=== PATIENT | female | born 1950 | race Caucasian/White ===

== ENCOUNTER → 2016-04-19 | Outpatient (CLI) | payer OTHER ==
[~2016-04-19] MED LIST: ATOR10TA88 PO; CHOL100010 PO; ESCI10TA17 PO; HYDR-5688 PO; IBUP-1050 PO; LISI-789 PO; LORA-741 PO
--- NOTE | 2016-04-19 16:44 | MAMMOGRAPHY REPORT ---
BILATERAL DIGITAL SCREENING MAMMOGRAM TOMOSYNTHESIS WITH CAD: 04/19/2016 CLINICAL HISTORY: Routine screening. Patient has no complaints. TECHNIQUE: Breast tomosynthesis in addition to standard 2D mammography was performed. Current study was also evaluated with a Computer Aided Detection (CAD) system. COMPARISON: Comparison is made to exams dated: 04/12/2015 mammogram, 02/17/2014 mammogram, 02/16/2013 mammogram, 02/06/2011 mammogram, 02/10/2012 mammogram - [facility], and 01/26/2008 . BREAST COMPOSITION: There are scattered areas of fibroglandular density in both breasts. FINDINGS: No suspicious masses, calcifications, or areas of architectural distortion are noted in e ither breast. There has been no significant interval change compared to prior exams. Scattered bilat eral benign-appearing calcifications are not significantly changed. Nodular asymmetry seen within t he right subareolar breast on the MLO view appears similar to the 2010 exam, and is therefore benign and felt to represent normal fibroglandular tissue. IMPRESSION: ACR BI-RADS CATEGORY 2: BENIGN There is no mammographic evidence of malignancy. A 1 year screening mammogram is recommended. The p atient will receive written notification of the results. Approximately 10% of breast cancers are not detected with mammography. A negative mammographic repor t should not delay biopsy if a clinically suggestive mass is present. Akanksha Sal M.D. /:04/19/2016 15:28:27 Milk Processing Worker: Юлия BEVERLY(Yanely)(Lesvia), [facility] letter sent: Normal 1/2 BI-RADS Code: ACR BI-RADS Category 2: Benign
== END | disposition home or self-care (01) ==
LOC: C.MAMM 13:55
PROVIDERS: ATTEND Family Medicine
DX: Z12.31 Encounter for screening mammogram for malignant neoplasm of breast (principal)

== ENCOUNTER → 2017-04-21 | Outpatient (CLI) | payer OTHER ==
[~2017-04-21] MED LIST changes: +ATOR10TA82 PO; -ATOR10TA88 PO; -HYDR-5688 PO
--- NOTE | 2017-04-21 15:19 | MAMMOGRAPHY REPORT ---
BILATERAL DIGITAL SCREENING MAMMOGRAM TOMOSYNTHESIS WITH CAD: 04/21/2017 CLINICAL HISTORY: Routine screening. Patient has no complaints. TECHNIQUE: Breast tomosynthesis in addition to standard 2D mammography was performed. Current study was also evaluated with a Computer Aided Detection (CAD) system. COMPARISON: Comparison is made to exams dated: 04/19/2016 mammogram, 04/12/2015 mammogram, 02/17/2014 m ammogram, 02/16/2013 mammogram, 02/10/2012 mammogram, and 02/06/2011 mammogram - [facility]. BREAST COMPOSITION: There are scattered areas of fibroglandular density in both breasts. FINDINGS: The parenchymal pattern is unchanged. No developing mass, architectural distortion or clus ter of suspicious microcalcifications is seen in either breast. IMPRESSION: ACR BI-RADS CATEGORY 2: BENIGN There is no mammographic evidence of malignancy. A 1 year screening mammogram is recommended. The pa tient will receive written notification of the results. Approximately 10% of breast cancers are not detected with mammography. A negative mammographic report should not delay biopsy if a clinically suggestive mass is present. Xin Menard M.D. ay/:04/21/2017 11:42:29 Admissions Manager Rn: Юлия BEVERLY(Yanely)(M), [facility] letter sent: Normal 1/2 BI-RADS Code: ACR BI-RADS Category 2: Benign
== END | disposition home or self-care (01) ==
LOC: C.MAMM 10:49
PROVIDERS: ATTEND Family Medicine
DX: Z12.31 Encounter for screening mammogram for malignant neoplasm of breast (principal)

== ENCOUNTER 2018-05-15 13:15 | Inpatient (IN) ==
[2018-05-15] MEDS ORDERED: dilTIAZem HCl 5 MG/ML 5 ML VIAL IV STA (13:41)
--- NOTE | 2018-05-15 13:47 | Emergency Department Note ---
ED Visit Note I contributed to the care of this patient under the supervision of . . Resident Activity Tracking Resident Involvement: Resident Care Provided Care Provided: Adult ED
[2018-05-15] MEDS ORDERED: SODIUM CHLORIDE 0.9% 1000ML 500 ML IV ONE (13:56)
[2018-05-15 13:57] LABS: Basophils # (auto) 0.01 K/uL (0-0.2); Basophils % (auto) 0.2 %; Eosinophils # (auto) 0.08 K/uL (0-0.5); Eosinophils % (auto) 1.2 %; Hematocrit (blood only) 44.1 % (37-47); Hemoglobin 14.1 g/dL (12.0-16.0); Immature Granulocytes # (auto) 0.01 K/uL (0.00-0.02); Immature Granulocytes % (auto) 0.2 %; Lymphocytes # (auto) 2.93 K/uL (1.2-3.4); Lymphocytes % (auto) 44.9 %; Mean Corpuscular Volume 91.5 fL (80-100); Mean Platelet Volume 10.7 fL (7.4-10.4); Monocytes # (auto) 0.33 K/uL (0.11-0.59); Monocytes % (auto) 5.1 %; Neutrophils # (auto) 3.16 K/uL (1.4-6.5); Neutrophils % (auto) 48.4 %; Platelet Count 338 K/uL (130-400); RDW Coefficient of Variation 13.6 % (11.5-14.5); RDW Standard Deviation 45.2 fL (36.4-46.3); Red Blood Count 4.82 M/uL (4.2-5.4); White Blood Count 6.52 K/uL (4.8-10.8)
[2018-05-15] MEDS ORDERED: dilTIAZem HCl 125 MG in DEXTROSE 5% 100 ML IV SCH (14:00)
[2018-05-15 14:13] LABS: Albumin Level 4.1 gm/dl (3.4-5.0); BUN Creatinine Ratio 23.1 (10-20); Calcium 9.7 mg/dl (8.5-10.1); Creatinine Clr Calc Pharmacy 73.1 ml/min; Est GFR (African American) 77.2; Est GFR (Non-African American) 66.6; Magnesium 2.2 mg/dl (1.8-2.4); Potassium 3.9 mmol/L (3.5-5.1)
[2018-05-15] MEDS ORDERED: HEPARIN SOD 5,000 UNIT/0.5 ML VIAL ONE (14:15)
[2018-05-15] MEDS ORDERED: HEPARIN 25000 UNIT/500 ML D5W IV ONE (14:15)
[2018-05-15 14:23] LABS: Albumin Globulin Ratio 1.1 (0.9-2); Bilirubin,Total 0.3 mg/dl (0.2-1); Globulin 3.7 gm/dl (2.5-4.0); Total Protein 7.8 gm/dl (6.4-8.2)
[2018-05-15 14:30] LABS: Partial Thromboplastin Time 27.3 Seconds (21.0-31.0)
--- NOTE | 2018-05-15 15:12 | XRay Report ---
XR chest 1V portable HISTORY: 67 years-old Female New afib RVR acute cardiac arrhythmia with atypical chest pain COMPARISON: Chest radiograph 09/07/2012 TECHNIQUE: Portable AP view of the chest FINDINGS: Cardiomediastinal and hilar silhouettes are unchanged. Calcification of the thoracic aortic arch. Mil d right hemidiaphragmatic elevation. There is no pneumothorax, pleural effusion, focal airspace conso lidation or overt pulmonary edema. Degenerative changes are seen about the shoulders and spine. IMPRESSION: No acute process. The above report was generated using voice recognition software. It may contain grammatical, syntax o r spelling errors. Electronically signed by: Hemant Adame M.D. 05/15/2018 3:11 PM
--- NOTE | 2018-05-15 15:52 | History & Physical Report ---
Date of Service May 15, 2018 Assessment & Plan (1) Atrial fibrillation with RVR: Atrial Fibrillation RVR: New Onset TSH: normal CXR:No acute process. Check ECHO Monitor electrolytes Start on metoprolol 25mg Q6H Discontinue Cardizem ggt which was started in ED IV lopressor PRN Started on IV heparin for anticoagulation Cardiology consulted--Appreciate Input Trend Cardiac enzymes Replace electrolytes as needed Gentle IV fluids Hypertension: Stable Continue Lisinopril Dyslipidemia: Continue Lipitor anxiety and depression Continue Lexapro DVT Px: on Heparin ggt Code Status: Full Code Disposition: Expect to discharge home when stable History of Present Illness Chief Complaint: Palpitations Primary Care Provider: Carey Serrano MD Patient is a 67-year-old female with history of hypertension, dyslipidemia, arthritis, anxiety and depression presents with history of palpitations since 6 months duration. Patient states having palpitations intermittently since 6 months duration which have been progressively worsening lately. Reports associated shortness of breath. States her symptoms worsen with exertion and improve with rest. Also reports associated dizziness but denies any history of syncope. Patient was noted to be in A. fib RVR with heart rate in 150s when in ED. She was started on heparin and Cardizem drip while in ED. Denies any history of chest pain, pedal edema, fever, chills, nausea, vomiting, abdominal pain, diarrhea, dysuria, hematuria, recent change in medications, any bleeding issues. Discussed with cardiology, Dr. Hopson while in ED. Allergies Allergy/AdvReac Type Severity Reaction Status Date / Time morphine Allergy Unknown Verified 05/15/18 13:50 Home Medications Home Medications Medication Instructions Recorded Confirmed Type atorvastatin 10 mg PO HS 05/15/18 05/15/18 History cholecalciferol (vitamin D3) 1,000 unit PO DAILY 05/15/18 05/15/18 History escitalopram oxalate 20 mg PO DAILY 05/15/18 05/15/18 History ibuprofen 200 - 600 mg PO Q4H PRN 05/15/18 05/15/18 History lisinopril 5 mg PO DAILY 05/15/18 05/15/18 History lorazepam 0.5 mg PO DAILY PRN 05/15/18 05/15/18 History Past Med/Surg History Medical History Anxiety H/O: hysterectomy Hyperlipidemia Hypertension Surgical History H/O knee surgery History of hip surgery Family History Other Family history non-contributory Social History Feels Safe at Home: Yes Smoking Status: Never smoker Hx Alcohol Use: No Review of Systems All systems reviewed & are unremarkable except as noted in HPI & below Physical Exam Vital Signs (Past 24 Hours): Last Vital Signs Temp 36.8 C 05/15/18 13:17 Pulse 98 H 05/15/18 15:01 Resp 17 05/15/18 15:01 BP 118/84 05/15/18 15:01 Pulse Ox 96 05/15/18 13:56 Physical Exam: Physical Exam: Vitals signs as noted above General Appearance:Moderately built and nourished, no apparent distress Head: normocephalic, Atraumatic Eyes: normal inspection, EOMI Neck: supple, Trachea midline Respiratory/Chest: Normal breath sounds, CTA, No accessory muscle use Cardiovascular: Irregularly Irregular, No murmur, +Tachycardia Abdomen/GI:Soft, Non tender, Bowel sounds present Extremities/Musculoskelatal:normal inspection, no edema Neurologic/Psych:AAOX3, grossly no focal neurological deficits Skin: normal color, warm Results & Data Laboratory Results Short CBC 05/15/18 Range/Units 13:45 WBC 6.52 (4.8-10.8) K/uL Hgb 14.1 (12.0-16.0) g/dL Hct 44.1 (37-47) % Plt Count 338 (130-400) K/uL BMP 05/15/18 13:45 Sodium 139 Potassium 3.9 Chloride 104 Carbon Dioxide 27 BUN 21 H Creatinine 0.90 Glucose 105 H Calcium 9.7 Liver Function 05/15/18 Range/Units 13:45 Total Bilirubin 0.3 (0.2-1) mg/dl AST 20 (15-37) U/L ALT 31 (12-78) U/L Alkaline Phosphatase 76 (45-117) U/L Albumin 4.1 (3.4-5.0) gm/dl Diagnostic Findings CXR: No acute process. ECG Additional Comments: EKG: Afib RVR, Low voltage QRS, Poor R wave progression on my interpretation
[2018-05-15] MEDS ORDERED: POLYETHYLENE (MIRALAX) 17 GM PACK PO PRN (17:37)
[2018-05-15] MEDS ORDERED: LORazepam 0.5 MG TAB PO PRN (17:37)
[2018-05-15] MEDS ORDERED: METOPROLOL TARTRATE 1 MG/ML VIAL IV PRN (17:37)
[2018-05-15] MEDS ORDERED: ACETAMINOPHEN 325 MG TAB PO PRN (17:37)
[2018-05-15] MEDS ORDERED: ONDANSETRON INJ 2 MG/ML 2 ML VIAL IV PRN (17:37)
[2018-05-15] MEDS ORDERED: NSS + 20MEQ KCL 20 MEQ/1,000 ML BAG IV ONE (17:45)
[2018-05-15] MEDS ORDERED: Heparin IV Standard *NO* Bolus IV SCH (17:45)
[2018-05-15] MEDS: METOPROLOL TARTRATE 25 MG TAB PO SCH ×2 (18:00→23:43)
[2018-05-15] MEDS: dilTIAZem HCl 125 MG in DEXTROSE 5% 100 ML IV SCH (18:02)
--- NOTE | 2018-05-15 18:48 | Emergency Department Note ---
Entered by Robel Kingston acting as a scribe for History of Present Illness General Chief complaint: Cardiac Assessment Stated complaint: A FIB - SENT FROM [facility] Time Seen by Provider: 05/15/18 13:23 Source: patient History of Present Illness Provider complaint: Palpitations Onset (ago): week(s) 1 Location: chest Radiation: non-radiation Severity: similar to prior episodes Pain Consistency: + intermittent Associated symptoms: + shortness of breath and + other (No changes in vision, shaky ); no chest pain, no nausea/vomiting, no syncope and no weakness The patient is a 67 year old female who presents to the Emergency Room with complaints of intermittent episodes of palpitations that have been persistent for the past couple of months but worse over the past week. She states last October is when she first developed palpitations. She states she has no chest pain or pressure but has been short of breath with exertion. She is unsure how long the episodes last but did note an episode the other night lasted all evening. She denies any weakness, nausea, vomiting, changes in vision or history of blood clots, but she has been intermittently lightheaded during her episodes. She also noted that she had a stress test last year after an abnormal EKG which revealed thickening of her heart, but no further tests were scheduled. She currently takes atorvastatin, lexapro, lisinopril and occasionally ativan. Home Medications Home Medications Medication Instructions Recorded Confirmed Type atorvastatin 10 mg PO HS 05/15/18 05/15/18 History cholecalciferol (vitamin D3) 1,000 unit PO DAILY 05/15/18 05/15/18 History escitalopram oxalate 20 mg PO DAILY 05/15/18 05/15/18 History ibuprofen 200 - 600 mg PO Q4H PRN 05/15/18 05/15/18 History lisinopril 5 mg PO DAILY 05/15/18 05/15/18 History lorazepam 0.5 mg PO DAILY PRN 05/15/18 05/15/18 History Allergies Allergy/AdvReac Type Severity Reaction Status Date / Time morphine Allergy Unknown Verified 05/15/18 13:50 Past Med/Surg History Medical History Anxiety H/O: hysterectomy Hyperlipidemia Hypertension Surgical History H/O knee surgery History of hip surgery Family History Other Family history non-contributory Social History Preferred Language: Greek Communication Ability: Effective Msws Required: No Beliefs That Will Affect Care: None Current Living Situation: Alone Other Information That Helps Us Care for You: No Feels Safe at Home: Yes Safety Concerns: Feels Safe At This Time Smoking Status: Never smoker Hx Alcohol Use: No Hx Substance Use: No Review of Systems See HPI for pertinent positives & negatives. and A total of 10 systems reviewed and were otherwise negative Physical Exam Vital Signs Vital Signs - 24 hr 05/15/18 13:17 05/15/18 13:34 05/15/18 13:40 Temperature 36.8 C Temperature Source Oral Sepsis Recent Fever Within 48 Hours No Sepsis New/Unexplained Change in Mental Status No Sepsis Action Taken by Nursing No Action Required Pulse Rate 153 H 146 H 158 H Pulse Rate [Apical] Pulse Rate from SpO2 Sensor Pulse Rhythm Irregular Pulse Rhythm [Apical] Pulse Strength Normal Pulse Strength [Apical] Respiratory Rate 20 21 17 Respiratory Effort / Characteristics Non-Labored Spontaneous Respiratory Depth Normal Respiratory Pattern Regular Blood Pressure 107/64 115/70 Blood Pressure [Right Arm] Blood Pressure Mean 78 85 Blood Pressure Mean [Right Arm] Blood Pressure Position [Right Arm] Pulse Oximetry 95 Pulse Oximetry [Right Index Finger] Oxygen Delivery Method Room Air Oxygen Delivery Method [Right Index Finger] 05/15/18 13:41 05/15/18 13:49 05/15/18 13:50 Temperature Temperature Source Sepsis Recent Fever Within 48 Hours Sepsis New/Unexplained Change in Mental Status Sepsis Action Taken by Nursing Pulse Rate 150 H 147 H 133 H Pulse Rate [Apical] Pulse Rate from SpO2 Sensor Pulse Rhythm Pulse Rhythm [Apical] Pulse Strength Pulse Strength [Apical] Respiratory Rate 17 20 Respiratory Effort / Characteristics Respiratory Depth Respiratory Pattern Blood Pressure 112/95 Blood Pressure [Right Arm] Blood Pressure Mean 100 Blood Pressure Mean [Right Arm] Blood Pressure Position [Right Arm] Pulse Oximetry Pulse Oximetry [Right Index Finger] Oxygen Delivery Method Oxygen Delivery Method [Right Index Finger] 05/15/18 13:53 05/15/18 13:55 05/15/18 13:56 Temperature Temperature Source Sepsis Recent Fever Within 48 Hours Sepsis New/Unexplained Change in Mental Status Sepsis Action Taken by Nursing Pulse Rate 126 H 132 H Pulse Rate [Apical] 120 H Pulse Rate from SpO2 Sensor 115 H 110 H Pulse Rhythm Pulse Rhythm [Apical] Pulse Strength Pulse Strength [Apical] Respiratory Rate 22 17 19 Respiratory Effort / Characteristics Respiratory Depth Respiratory Pattern Blood Pressure 120/76 Blood Pressure [Right Arm] 112/95 Blood Pressure Mean 113 90 Blood Pressure Mean [Right Arm] 100 Blood Pressure Position [Right Arm] Pulse Oximetry 96 96 Pulse Oximetry [Right Index Finger] Oxygen Delivery Method Oxygen Delivery Method [Right Index Finger] 05/15/18 14:00 05/15/18 14:05 05/15/18 14:10 Temperature Temperature Source Sepsis Recent Fever Within 48 Hours Sepsis New/Unexplained Change in Mental Status Sepsis Action Taken by Nursing Pulse Rate 108 H 103 H 104 H Pulse Rate [Apical] Pulse Rate from SpO2 Sensor Pulse Rhythm Pulse Rhythm [Apical] Pulse Strength Pulse Strength [Apical] Respiratory Rate 16 18 22 Respiratory Effort / Characteristics Respiratory Depth Respiratory Pattern Blood Pressure 141/105 H Blood Pressure [Right Arm] Blood Pressure Mean 117 Blood Pressure Mean [Right Arm] Blood Pressure Position [Right Arm] Pulse Oximetry Pulse Oximetry [Right Index Finger] Oxygen Delivery Method Oxygen Delivery Method [Right Index Finger] 05/15/18 14:16 05/15/18 14:20 05/15/18 14:30 Temperature Temperature Source Sepsis Recent Fever Within 48 Hours Sepsis New/Unexplained Change in Mental Status Sepsis Action Taken by Nursing Pulse Rate 112 H 114 H 110 H Pulse Rate [Apical] Pulse Rate from SpO2 Sensor Pulse Rhythm Pulse Rhythm [Apical] Pulse Strength Pulse Strength [Apical] Respiratory Rate 23 21 22 Respiratory Effort / Characteristics Respiratory Depth Respiratory Pattern Blood Pressure 122/81 Blood Pressure [Right Arm] Blood Pressure Mean 94 Blood Pressure Mean [Right Arm] Blood Pressure Position [Right Arm] Pulse Oximetry Pulse Oximetry [Right Index Finger] Oxygen Delivery Method Oxygen Delivery Method [Right Index Finger] 05/15/18 14:31 05/15/18 14:32 05/15/18 14:45 Temperature Temperature Source Sepsis Recent Fever Within 48 Hours Sepsis New/Unexplained Change in Mental Status Sepsis Action Taken by Nursing Pulse Rate 100 H 95 H 94 H Pulse Rate [Apical] Pulse Rate from SpO2 Sensor Pulse Rhythm Pulse Rhythm [Apical] Pulse Strength Pulse Strength [Apical] Respiratory Rate 24 18 21 Respiratory Effort / Characteristics Respiratory Depth Respiratory Pattern Blood Pressure 105/80 Blood Pressure [Right Arm] Blood Pressure Mean 88 Blood Pressure Mean [Right Arm] Blood Pressure Position [Right Arm] Pulse Oximetry Pulse Oximetry [Right Index Finger] Oxygen Delivery Method Oxygen Delivery Method [Right Index Finger] 05/15/18 14:46 05/15/18 15:00 05/15/18 15:01 Temperature Temperature Source Sepsis Recent Fever Within 48 Hours Sepsis New/Unexplained Change in Mental Status Sepsis Action Taken by Nursing Pulse Rate 101 H 94 H 98 H Pulse Rate [Apical] Pulse Rate from SpO2 Sensor Pulse Rhythm Pulse Rhythm [Apical] Pulse Strength Pulse Strength [Apical] Respiratory Rate 20 16 17 Respiratory Effort / Characteristics Respiratory Depth Respiratory Pattern Blood Pressure 118/84 Blood Pressure [Right Arm] Blood Pressure Mean 106 95 Blood Pressure Mean [Right Arm] Blood Pressure Position [Right Arm] Pulse Oximetry Pulse Oximetry [Right Index Finger] Oxygen Delivery Method Oxygen Delivery Method [Right Index Finger] 05/15/18 15:02 05/15/18 15:15 05/15/18 15:16 Temperature Temperature Source Sepsis Recent Fever Within 48 Hours Sepsis New/Unexplained Change in Mental Status Sepsis Action Taken by Nursing Pulse Rate 85 93 H 96 H Pulse Rate [Apical] Pulse Rate from SpO2 Sensor Pulse Rhythm Pulse Rhythm [Apical] Pulse Strength Pulse Strength [Apical] Respiratory Rate 16 26 H 21 Respiratory Effort / Characteristics Respiratory Depth Respiratory Pattern Blood Pressure 118/76 Blood Pressure [Right Arm] Blood Pressure Mean 90 Blood Pressure Mean [Right Arm] Blood Pressure Position [Right Arm] Pulse Oximetry Pulse Oximetry [Right Index Finger] Oxygen Delivery Method Oxygen Delivery Method [Right Index Finger] 05/15/18 15:30 05/15/18 15:31 05/15/18 15:35 Temperature Temperature Source Sepsis Recent Fever Within 48 Hours Sepsis New/Unexplained Change in Mental Status Sepsis Action Taken by Nursing Pulse Rate 90 91 H 102 H Pulse Rate [Apical] Pulse Rate from SpO2 Sensor Pulse Rhythm Pulse Rhythm [Apical] Pulse Strength Pulse Strength [Apical] Respiratory Rate 15 18 23 Respiratory Effort / Characteristics Respiratory Depth Respiratory Pattern Blood Pressure 116/79 119/74 Blood Pressure [Right Arm] Blood Pressure Mean 91 89 Blood Pressure Mean [Right Arm] Blood Pressure Position [Right Arm] Pulse Oximetry Pulse Oximetry [Right Index Finger] Oxygen Delivery Method Oxygen Delivery Method [Right Index Finger] 05/15/18 15:45 05/15/18 15:46 05/15/18 15:59 Temperature Temperature Source Sepsis Recent Fever Within 48 Hours Sepsis New/Unexplained Change in Mental Status Sepsis Action Taken by Nursing Pulse Rate 92 H 90 103 H Pulse Rate [Apical] Pulse Rate from SpO2 Sensor Pulse Rhythm Pulse Rhythm [Apical] Pulse Strength Pulse Strength [Apical] Respiratory Rate 15 20 17 Respiratory Effort / Characteristics Respiratory Depth Respiratory Pattern Blood Pressure 99/80 L 118/71 Blood Pressure [Right Arm] Blood Pressure Mean 86 86 Blood Pressure Mean [Right Arm] Blood Pressure Position [Right Arm] Pulse Oximetry Pulse Oximetry [Right Index Finger] Oxygen Delivery Method Oxygen Delivery Method [Right Index Finger] 05/15/18 16:00 05/15/18 16:01 05/15/18 16:15 Temperature Temperature Source Sepsis Recent Fever Within 48 Hours Sepsis New/Unexplained Change in Mental Status Sepsis Action Taken by Nursing Pulse Rate 88 92 H 103 H Pulse Rate [Apical] Pulse Rate from SpO2 Sensor Pulse Rhythm Pulse Rhythm [Apical] Pulse Strength Pulse Strength [Apical] Respiratory Rate 21 20 18 Respiratory Effort / Characteristics Respiratory Depth Respiratory Pattern Blood Pressure 117/70 Blood Pressure [Right Arm] Blood Pressure Mean 85 Blood Pressure Mean [Right Arm] Blood Pressure Position [Right Arm] Pulse Oximetry Pulse Oximetry [Right Index Finger] Oxygen Delivery Method Oxygen Delivery Method [Right Index Finger] 05/15/18 16:31 05/15/18 16:45 05/15/18 16:46 Temperature Temperature Source Sepsis Recent Fever Within 48 Hours Sepsis New/Unexplained Change in Mental Status Sepsis Action Taken by Nursing Pulse Rate 90 79 77 Pulse Rate [Apical] Pulse Rate from SpO2 Sensor Pulse Rhythm Pulse Rhythm [Apical] Pulse Strength Pulse Strength [Apical] Respiratory Rate 21 13 23 Respiratory Effort / Characteristics Respiratory Depth Respiratory Pattern Blood Pressure 107/79 119/81 Blood Pressure [Right Arm] Blood Pressure Mean 88 93 Blood Pressure Mean [Right Arm] Blood Pressure Position [Right Arm] Pulse Oximetry Pulse Oximetry [Right Index Finger] Oxygen Delivery Method Oxygen Delivery Method [Right Index Finger] 05/15/18 17:00 05/15/18 17:01 05/15/18 17:23 Temperature Temperature Source Sepsis Recent Fever Within 48 Hours Sepsis New/Unexplained Change in Mental Status Sepsis Action Taken by Nursing Pulse Rate 87 92 H 128 H Pulse Rate [Apical] Pulse Rate from SpO2 Sensor Pulse Rhythm Pulse Rhythm [Apical] Pulse Strength Pulse Strength [Apical] Respiratory Rate 12 Respiratory Effort / Characteristics Respiratory Depth Respiratory Pattern Blood Pressure 119/76 Blood Pressure [Right Arm] Blood Pressure Mean 90 Blood Pressure Mean [Right Arm] Blood Pressure Position [Right Arm] Pulse Oximetry Pulse Oximetry [Right Index Finger] Oxygen Delivery Method Oxygen Delivery Method [Right Index Finger] 05/15/18 17:30 05/15/18 17:37 05/15/18 17:53 Temperature 36.9 C 36.9 C Temperature Source Oral Oral Sepsis Recent Fever Within 48 Hours Sepsis New/Unexplained Change in Mental Status Sepsis Action Taken by Nursing Pulse Rate 80 Pulse Rate [Apical] 82 82 Pulse Rate from SpO2 Sensor Pulse Rhythm Pulse Rhythm [Apical] Regular Regular Pulse Strength Pulse Strength [Apical] Normal Normal Respiratory Rate 20 14 19 Respiratory Effort / Characteristics Non-Labored Spontaneous Non-Labored Spontaneous Normal for Patient Respiratory Depth Normal Normal Respiratory Pattern Regular Blood Pressure 117/79 Blood Pressure [Right Arm] 133/69 133/69 Blood Pressure Mean Blood Pressure Mean [Right Arm] 90 90 Blood Pressure Position [Right Arm] Sitting Lying Pulse Oximetry 99 95 96 Pulse Oximetry [Right Index Finger] 95 Oxygen Delivery Method Room Air Room Air Room Air Oxygen Delivery Method [Right Index Finger] Room Air 05/15/18 18:09 Temperature Temperature Source Sepsis Recent Fever Within 48 Hours Sepsis New/Unexplained Change in Mental Status Sepsis Action Taken by Nursing Pulse Rate 95 H Pulse Rate [Apical] Pulse Rate from SpO2 Sensor Pulse Rhythm Pulse Rhythm [Apical] Pulse Strength Pulse Strength [Apical] Respiratory Rate Respiratory Effort / Characteristics Respiratory Depth Respiratory Pattern Blood Pressure Blood Pressure [Right Arm] Blood Pressure Mean Blood Pressure Mean [Right Arm] Blood Pressure Position [Right Arm] Pulse Oximetry Pulse Oximetry [Right Index Finger] Oxygen Delivery Method Oxygen Delivery Method [Right Index Finger] Constitutional: Vital signs reviewed. Eyes: Pupils are equal round reactive to light. Conjunctiva are noninjected. ENT: Pharynx is clear without erythema or exudate. Mucous membranes are moist. Neck supple without meningeal signs. Respiratory: Clear to auscultation bilaterally. Breath sounds are equal bilaterally. Cardiovascular: Tachycardic rate at 150 and regular rhythm. GI: Soft, nondistended and nontender. Bowel sounds are present. Musculoskeletal: No peripheral edema. No lower extremity tenderness. Integumentary: No cyanosis. Neurological: The patient is awake and alert. No focal deficits. Psychiatric: Normal affect. Course 1325: Past medical records reviewed. The patient was evaluated in room C01B, and a complete history and physical examination were performed. 1350: The patient's heart rate is in the one teens after Cardizem and her blood pressure is stable at 120/76. We discussed a Heparin drip and will start a Cardizem drip. 1453: I reevaluated the patient and her heart rate is between 90-100. The Cardizem and Heparin drips are running. 1530: My resident, Dr. Kumar, spoke with Dr. Gaetano Mantilla Hospitalist about the patient's case and he is going to accept the patient for further evaluation. Consultations Consultation #1: My resident, Dr. Kumar, spoke with [facility] about the patient's case and he is going to accept the patient for further evaluation. Time: 15:30 Administered Medications Diltiazem HCl 125 mg/ Dextrose 125 mls @ 10 mls/hr IV .[id number] [facility]; Protocol Stop: 06/14/18 17:44 Last Admin: 05/15/18 18:02 Dose: Not Given Documented by: [id number] Potassium Chloride/Sodium Chloride (Normal Saline W/20 Meq Kcl) 20 meq in 1,000 mls @ 80 mls/hr IV .[id number] ONE Stop: 05/16/18 06:14 Last Admin: 05/15/18 18:02 Dose: 80 mls/hr Documented by: [id number] Metoprolol Tartrate (Lopressor) 25 mg PO Q6 MIKE Stop: 06/14/18 17:59 Last Admin: 05/15/18 18:00 Dose: 25 mg Documented by: [id number] Discontinued Medications Diltiazem HCl (Cardizem) 10 mg IV NOW STA Stop: 05/15/18 13:42 Last Admin: 05/15/18 13:48 Dose: 10 mg Documented by: [id number] Cosigned by: [id number] Heparin Sodium (Porcine) (Heparin Sodium (Porcine)) Confirm Administered Dose 10,000 units .ROUTE .STK-MED ONE Stop: 05/15/18 14:16 Last Admin: 05/15/18 14:33 Dose: 6,000 units Documented by: [id number] Cosigned by: [id number] Heparin Sodium/Dextrose () 1 ea N/A NOW STA; Protocol Stop: 05/15/18 13:49 Last Admin: 05/15/18 14:35 Dose: 1 ea Documented by: [id number] Heparin Sodium/Dextrose (Heparin Sodium/Dextrose) Confirm Administered Dose 25,000 units IV .STK-MED ONE Stop: 05/15/18 14:16 Last Admin: 05/15/18 14:33 Dose: 27 units Documented by: [id number] Cosigned by: [id number] Sodium Chloride (Nss 1000ml) 500 mls @ 999 mls/hr IV .Q31M ONE Stop: 05/15/18 14:26 Last Infusion: 05/15/18 14:36 Dose: 0 mls/hr Documented by: [id number] Admin: 05/15/18 14:07 Dose: 999 mls/hr Documented by: [id number] Diltiazem HCl 125 mg/ Dextrose 125 mls @ 0 mls/hr IV .Q0M [facility]; Protocol Stop: 06/14/18 13:59 Last Titration: 05/15/18 18:08 Dose: 0 mg/hr, 0 mls/hr Documented by: [id number] Admin: 05/15/18 14:19 Dose: 10 mg/hr, 10 mls/hr Documented by: [id number] Cosigned by: [id number] Medical Decision Making Differential Diagnosis Differentials: Paroxysmal Afib, Afib with RVR, metabolic derangement, electrolyte abnormalities, and ACS, amongst others. Medical Records Attestation: I reviewed the patient's medical records. Home Medications Current Medication List: was personally reviewed by me Laboratory Data Attestation: I reviewed the patient's lab results. Result diagrams: 05/15/18 13:45 05/15/18 13:45 Lab Results 05/15/18 05/15/18 05/15/18 Range/Units 13:45 13:45 13:45 WBC 6.52 (4.8-10.8) K/uL RBC 4.82 (4.2-5.4) M/uL Hgb 14.1 (12.0-16.0) g/dL Hct 44.1 (37-47) % MCV 91.5 (80-100) fL MCH 29.3 (25-34) pg MCHC 32.0 (32-36) g/dL RDW Std Deviation 45.2 (36.4-46.3) fL RDW Coeff of Melly 13.6 (11.5-14.5) % Plt Count 338 (130-400) K/uL MPV 10.7 H (7.4-10.4) fL Immature Gran % (Auto) 0.2 % Neut % (Auto) 48.4 % Lymph % (Auto) 44.9 % Dade % (Auto) 5.1 % Eos % (Auto) 1.2 % Baso % (Auto) 0.2 % Immature Gran # (Auto) 0.01 (0.00-0.02) K/uL Neut # (Auto) 3.16 (1.4-6.5) K/uL Lymph # (Auto) 2.93 (1.2-3.4) K/uL Dade # (Auto) 0.33 (0.11-0.59) K/uL Eos # (Auto) 0.08 (0-0.5) K/uL Baso # (Auto) 0.01 (0-0.2) K/uL APTT 27.3 (21.0-31.0) Seconds PTT Ratio 1.0 Sodium 139 (136-145) mmol/L Potassium 3.9 (3.5-5.1) mmol/L Chloride 104 (98-107) mmol/L Carbon Dioxide 27 (21-32) mmol/L Anion Gap 8.0 (3-11) BUN 21 H (7-18) mg/dl Creatinine 0.90 (0.6-1.2) mg/dl Est Cr Clr Drug Dosing 73.1 ml/min Est GFR ( Amer) 77.2 Est GFR (Non-Af Amer) 66.6 BUN/Creatinine Ratio 23.1 H (10-20) Glucose 105 H (70-99) mg/dl Calcium 9.7 (8.5-10.1) mg/dl Magnesium 2.2 (1.8-2.4) mg/dl Total Bilirubin 0.3 (0.2-1) mg/dl AST 20 (15-37) U/L ALT 31 (12-78) U/L Alkaline Phosphatase 76 (45-117) U/L POC Troponin I (0-0.045) ng/ml Total Protein 7.8 (6.4-8.2) gm/dl Albumin 4.1 (3.4-5.0) gm/dl Globulin 3.7 (2.5-4.0) gm/dl Albumin/Globulin Ratio 1.1 (0.9-2) TSH 2.200 (0.300-4.500) uIu/ml 05/15/18 Range/Units 14:03 WBC (4.8-10.8) K/uL RBC (4.2-5.4) M/uL Hgb (12.0-16.0) g/dL Hct (37-47) % MCV (80-100) fL MCH (25-34) pg MCHC (32-36) g/dL RDW Std Deviation (36.4-46.3) fL RDW Coeff of Melly (11.5-14.5) % Plt Count (130-400) K/uL MPV (7.4-10.4) fL Immature Gran % (Auto) % Neut % (Auto) % Lymph % (Auto) % Dade % (Auto) % Eos % (Auto) % Baso % (Auto) % Immature Gran # (Auto) (0.00-0.02) K/uL Neut # (Auto) (1.4-6.5) K/uL Lymph # (Auto) (1.2-3.4) K/uL Dade # (Auto) (0.11-0.59) K/uL Eos # (Auto) (0-0.5) K/uL Baso # (Auto) (0-0.2) K/uL APTT (21.0-31.0) Seconds PTT Ratio Sodium (136-145) mmol/L Potassium (3.5-5.1) mmol/L Chloride (98-107) mmol/L Carbon Dioxide (21-32) mmol/L Anion Gap (3-11) BUN (7-18) mg/dl Creatinine (0.6-1.2) mg/dl Est Cr Clr Drug Dosing ml/min Est GFR ( Amer) Est GFR (Non-Af Amer) BUN/Creatinine Ratio (10-20) Glucose (70-99) mg/dl Calcium (8.5-10.1) mg/dl Magnesium (1.8-2.4) mg/dl Total Bilirubin (0.2-1) mg/dl AST (15-37) U/L ALT (12-78) U/L Alkaline Phosphatase (45-117) U/L POC Troponin I < 0.03 (0-0.045) ng/ml Total Protein (6.4-8.2) gm/dl Albumin (3.4-5.0) gm/dl Globulin (2.5-4.0) gm/dl Albumin/Globulin Ratio (0.9-2) TSH (0.300-4.500) uIu/ml Imaging Data Radiologist's Impression: Radiology results as stated below per my review and the radiologist's interpretation: XR chest 1V portable HISTORY: 67 years-old Female New afib RVR acute cardiac arrhythmia with aty pical chest pain COMPARISON: Chest radiograph 09/07/2012 TECHNIQUE: Portable AP view of the chest FINDINGS: Cardiomediastinal and hilar silhouettes are unchanged. Calcification of the thoracic aortic arch. Mild right hemidiaphragmatic elevation. There is no pneumothorax, pleural effusion, focal airspace consolidation or overt pulmonary edema. Degenerative changes are seen about the shoulders and spine. IMPRESSION: No acute process. The above report was generated using voice recognition software. It may contain grammatical, syntax or spelling errors. Electronically signed by: Hemant Adame M.D. 05/15/2018 3:11 PM ECG Data Attestation: I personally reviewed and interpreted this ECG as follows: Indication: palpitations Rate (beats per minute): 145 Rhythm: atrial fibrillation Findings: no PVC and no ST elevation Blood Pressure Blood Pressure Findings: Normal blood pressure MDM Narrative I did perform a limited focused review of portions of the patient's old chart on the electronic medical record. The patient has had no recent pertinent visits to this hospital. Resident Physician Supervision Note: I did evaluate and examine this patient myself. I did guide management for the patient. I agree with the resident's ( ) assessment as discussed. I did evaluate the patient as noted above. The patient is presenting with palpitations. She was sent here by her doctor's office for A. fib which is new for her. IV access was established. The patient was placed on a continuous cardiac sonographer. I did order and personally review the patient's 12-lead EKG and chest x-ray as described above. Twelve-lead EKG demonstrates A. fib with RVR. Chest x-ray is unremarkable. I did treat the patient with Cardizem 10 mg IV. She had improvement of her symptoms and her blood pressure remained stable. She was given normal saline IV. She was started on a Cardizem drip. After d iscussion of risks and benefits she was started on a heparin drip as well. I did order and review the patient's blood work as noted in the electronic medical record. Labs are unremarkable. I did reassess the patient multiple times. Her heart rate did improve significantly. I did recommend hospitalization for further evaluation. The case was discussed with hospitalist and piano case maker. Impression & Plan Atrial fibrillation with RVR, Atrial fibrillation, new onset Critical Care Time I have personally spent 40 minutes of critical care time in the direct management of this patient. This includes bedside care, interpretation of diagnostic studies, and testing, discussion with consultants, patient, and family members, and other required patient management activities. This 40 minutes is in excess of all separately billable procedures. Critical Care Time: Yes Total Critical Care Time: 40 Discharge Plan Visit Data *Final* Discharge Date/Time: 05/15/18 17:30 Chief Complaint: Cardiac Assessment Stated Complaint: A FIB - SENT FROM [facility] ED Provider: Pavel Luna ED Midlevel Provider: Maximino Kumar Discharge Problem: Atrial fibrillation with RVR, Atrial fibrillation, new onset Patient Disposition: Admitted As Inpatient Discharge Instructions Interventions: ED Discharge Assessment Last Done: 05/15/18 17:30 The scribe's documentation has been prepared under my direction and personally reviewed by me in its entirety. I confirm that the note above accurately reflects all work, treatment, procedures, and medical decision making performed by me.
[2018-05-15] MEDS ORDERED: HEPARIN STANDARD DEXTROSE 25,000 UNITS/500 ML IV SCH (19:15)
[2018-05-15] MEDS ORDERED: ZOLPIDEM TARTRATE 5 MG TAB PO PRN (20:11)
[2018-05-15] MEDS ORDERED: ATORVASTATIN 10 MG TAB PO SCH (21:00)
[2018-05-15 21:32] LABS: Partial Thromboplastin Ratio 3.3
[2018-05-15 22:02] LABS: Partial Thromboplastin Time 90.6 Seconds (21.0-31.0)
--- NOTE | 2018-05-16 00:07 | Consultation Report ---
DATE OF CONSULTATION: 05/15/2018 CARDIOLOGY CONSULTATION REFERRING PHYSICIAN: Derrick Salter MD PRIMARY CARE PHYSICIAN: Carey Serrano MD INDICATIONS: Atrial fibrillation with rapid ventricular response. HISTORY OF PRESENT ILLNESS: The patient is a 67-year-old female with history notable for hyperlipidemia, hypertension and chronic arthritic issues who presents now noting a history of intermittent palpitations worse with exertion for up to 6 months in duration. The patient denies any specific chest pain, but notes symptoms became more pronounced today heart fluttering and quivering in her chest. She presented to the outpatient clinic. She was found to be in atrial fibrillation with elevated ventricular response rate. She was referred to the Emergency Room for further evaluation and begun on I.V. heparin and I.V. diltiazem with subsequent slowing of heart. She denies any chest pains. Notes no fevers, chills or sweats. Notes no acute illness. Notes no melena, hematochezia, dysuria or hematuria. Notes no bleeding difficulties. Notes blood pressures have been generally well controlled. Denies prior history of transient ischemic attack or stroke. Notes no history of rheumatic fever, scarlet fever, renal or hepatic disease. She does carry a familial history of heart disease and underwent stress echocardiography in 05/2017, which was negative for ischemia though at low level exercise tolerance and hypertensive blood pressure response. She denies current headache or visual changes. REVIEW OF SYSTEMS: Otherwise negative. ALLERGIES: NOTABLE INTOLERANCE OF MORPHINE. MEDICATIONS: Lorazepam 0.5 mg p.r.n., Lexapro 20 mg daily, lisinopril 5 mg p.o. daily, atorvastatin 10 mg p.o. daily, ibuprofen, the patient takes three 200 mg tablets per day and vitamin D supplement. PAST SURGICAL HISTORY: Notable for bilateral hip replacement, past remote hysterectomy and bladder sling suspension, prior tubal ligation, right foot surgeries, past knee surgeries with arthroscopic surgery and ultimately left total knee replacement. FAMILY HISTORY: Notable for father who of cardiac complications in his 50s with myocardial infarction. SOCIAL HISTORY: The patient resides in [place]. She is a nonsmoker and nondrinker. She is moderately active about her home with general good tolerance. PHYSICAL EXAMINATION: VITAL SIGNS: Heart rate currently on I.V. diltiazem is 84, blood pressure is 118/84 equal in both arms. HEENT: Normocephalic and atraumatic. Nares without discharge. Throat was clear. NECK: Supple without thyromegaly, lymphadenopathy or JVD. There are no carotid bruits. LUNGS: Clear to auscultation. CARDIOVASCULAR: Irregularly irregular. There is no audible murmur or rub. PMI is nondisplaced. ABDOMEN: Soft and nontender. There is no palpable splenomegaly. There is no hepatojugular reflux. EXTREMITIES: Without cyanosis or clubbing. There is no peripheral edema. There are intact distal pulses at 2/4. There are no abdominal bruits or femoral bruits. NEUROLOGIC: The patient is alert and answering questions appropriately. DATA: Electrocardiogram done on initial Emergency Room presentation on 05/15/2018 demonstrated atrial fibrillation with rapid ventricular response and rate 145 with poor R-wave progression across the anterior precordial leads. LABORATORY STUDIES: White cell count 6.5. Hemoglobin is 14.1. Platelet count is 338. INR is normal. Sodium is 139. Potassium is 3.9. Chloride is 104. Bicarbonate is 27. BUN is 21. Creatinine 0.9. Glucose is 105. Troponin is less than 0.03. Albumin is 4.1. Thyroid stimulating hormone is 2.2. Chest x-ray reveals no infiltrate or edema. IMPRESSION: The patient is a 67-year-old female who presented to the Emergency Room after evaluation in the outpatient setting and found the patient to be in atrial fibrillation with rapid ventricular response with presenting complaints of palpitations of several months' duration. The patient is currently comfortable. Rates have been controlled with I.V. diltiazem. PLAN: Discussed atrial fibrillation in detail with the patient mechanism and treatment. Initial plan will be further rate control given uncertain chronicity of atrial fibrillation possibly extensive duration. Echocardiogram will be ordered for a.m. We will begin on metoprolol 25 mg q. 6 hours. Continue anticoagulation with heparin with likely plan to transverse to Eliquis on discharge. The patient does use a fairly substantial amounts of nonsteroidals, likely need alternate choice on discharge. We will review echocardiogram in a.m. and follow the patient in the hospital. All questions answered. Initial evaluation does not suggest acute ischemic changes or complaints. We would continue atorvastatin and lisinopril as previously ordered.
[2018-05-16 04:43] LABS: Hematocrit (blood only) 39.3 % (37-47); Hemoglobin 12.7 g/dL (12.0-16.0); Mean Corpuscular Hgb Conc 32.3 g/dL (32-36); Platelet Count 300 K/uL (130-400); RDW Coefficient of Variation 13.7 % (11.5-14.5); RDW Standard Deviation 45.8 fL (36.4-46.3); Red Blood Count 4.27 M/uL (4.2-5.4); White Blood Count 6.41 K/uL (4.8-10.8)
[2018-05-16 05:00] LABS: BUN Creatinine Ratio 23.9 (10-20); Blood Urea Nitrogen 21 mg/dl (7-18); Calcium 8.5 mg/dl (8.5-10.1); Carbon Dioxide 29 mmol/L (21-32); Chloride 110 mmol/L (98-107); Creatinine Clr Calc Pharmacy 84.8 ml/min; Est GFR (African American) 81.6; Est GFR (Non-African American) 70.4; Glucose 94 mg/dl (70-99); Magnesium 2.1 mg/dl (1.8-2.4); Potassium 4.4 mmol/L (3.5-5.1); Sodium 140 mmol/L (136-145)
[2018-05-16 05:04] LABS: INR 1.1 (0.9-1.1); Partial Thromboplastin Ratio 2.3; Prothrombin Time 10.8 Seconds (9.0-12.0)
[2018-05-16 05:05] LABS: Troponin I < 0.015 ng/ml (0-0.045)
[2018-05-16 05:15] LABS: Partial Thromboplastin Time 63.3 Seconds (21.0-31.0)
[2018-05-16] MEDS: METOPROLOL TARTRATE 25 MG TAB PO SCH (06:20)
[2018-05-16] MEDS: dilTIAZem HCl 125 MG in DEXTROSE 5% 100 ML IV SCH ×2 (07:17→12:23)
[2018-05-16] MEDS ORDERED: PERFLUTREN LIPID MICROSPHERE (DEFINITY) IV ONE (07:36)
[2018-05-16] MEDS ORDERED: CHOLECALCIFEROL 1,000 UNITS TAB PO SCH (09:00)
[2018-05-16] MEDS ORDERED: ESCITALOPRAM OXALATE 20 MG TAB PO SCH (09:00)
[2018-05-16] MEDS ORDERED: LISINOPRIL 5 MG TAB PO SCH (09:00)
--- NOTE | 2018-05-16 10:38 | Hospitalist Progress Note ---
Date of Service May 16, 2018 Assessment & Plan (1) Atrial fibrillation with RVR: Atrial Fibrillation RVR: New Onset TSH: normal CXR:No acute process. Check ECHO; mild concentric left ventricular hypertrophy, no regional wall motion abnormality, EF 55-60%, mild left atrial enlargement and no significant valvular abnormalities Normal electrolytes Serial troponins remained negative for any ACS Started was on Cardizem drip and later on discontinued with initiation of beta- rachel Started 1 intravenous heparin and likely to have long-term oral anticoagulation Appreciate cardiology input and recommendation Patient remained asymptomatic since admission Hypertension: Stable Continue Lisinopril Blood pressure is controlled Dyslipidemia: Continue Lipitor anxiety and depression Continue Lexapro DVT Px: on Heparin ggt Code Status: Full Code Disposition: Expect to discharge home when stable Likely to be discharged in a day or 2 on oral anticoagulation likely Eliquis Subjective Admitted with history of palpitation for a few days and feeling generally unwell. Noted to have A. fib with RVR in emergency room 05/16 Feeling a lot better since admission Denies any more palpitation and/or apprehension Physical Exam Vital Signs (Past 24 Hours): Last Vital Signs Temp 37.3 C 05/16/18 07:51 Pulse 103 H 05/16/18 07:51 Resp 25 H 05/16/18 07:51 BP 137/93 05/16/18 07:51 Pulse Ox 97 05/16/18 07:51 Physical Exam: No apparent distress at rest Constitutional: WD/WN, vitals as above Eyes: PERRL, conjunctivae normal, anicteric sclerae ENMT: external ear and nose normal, oropharynx normal Neck: trachea midline, no thyromegaly Respiratory: normal respiratory effort, lungs clear to auscultation Cardiovascular: Rate/Rhythm: regular rate; + abnormal rhythm Heart Sounds: normal S1 and normal S2 Gastrointestinal (Abdomen): normal bowel sounds, soft, nontender, no hepatosplenomegaly Neurologic: Alert, awake and oriented x3. No focal sensory and/or motor deficit appreciated Results & Data Laboratory Results Short CBC 05/15/18 05/16/18 Range/Units 13:45 04:30 WBC 6.52 6.41 (4.8-10.8) K/uL Hgb 14.1 12.7 (12.0-16.0) g/dL Hct 44.1 39.3 (37-47) % Plt Count 338 300 (130-400) K/uL BMP 05/15/18 05/16/18 13:45 04:30 Sodium 139 140 Potassium 3.9 4.4 Chloride 104 110 H Carbon Dioxide 27 29 BUN 21 H 21 H Creatinine 0.90 0.86 Glucose 105 H 94 Calcium 9.7 8.5 Cardiac Enzymes 05/15/18 05/16/18 Range/Units 20:39 04:30 Troponin I < 0.015 < 0.015 (0-0.045) ng/ml Liver Function 05/15/18 Range/Units 13:45 Total Bilirubin 0.3 (0.2-1) mg/dl AST 20 (15-37) U/L ALT 31 (12-78) U/L Alkaline Phosphatase 76 (45-117) U/L Albumin 4.1 (3.4-5.0) gm/dl Medications Administered Current Inpatient Medications Acetaminophen (Tylenol) 650 mg PO Q4H PRN PRN Reason: Pain or Fever Stop: 06/14/18 17:36 Atorvastatin Calcium (Lipitor) 10 mg PO HS [facility] Stop: 06/14/18 20:59 Last Admin: 05/15/18 20:30 Dose: 10 mg Documented by: Escitalopram Oxalate (Lexapro) 20 mg PO DAILY [facility] Stop: 06/15/18 08:59 Last Admin: 05/16/18 09:15 Dose: 20 mg Documented by: Diltiazem HCl 125 mg/ Dextrose 125 mls @ 10 mls/hr IV .[id number] [facility]; Protocol Stop: 06/14/18 17:44 Last Admin: 05/16/18 07:17 Dose: Not Given Documented by: Heparin Sodium/Dextrose (Heparin Sodium/Dextrose) 25,000 units in 500 mls @ 24 mls/hr IV .[id number] [facility]; Protocol Stop: 06/14/18 19:14 Last Titration: 05/16/18 07:16 Dose: 1,200 units/hr, 24 mls/hr Documented by: Lisinopril (Zestril) 5 mg PO DAILY [facility] Stop: 06/15/18 08:59 Last Admin: 05/16/18 09:15 Dose: 5 mg Documented by: Lorazepam (Ativan) 0.5 mg PO DAILY PRN PRN Reason: Anxiety Stop: 04/07/19 17:36 Metoprolol Tartrate (Lopressor) 25 mg PO Q6 [facility] Stop: 06/14/18 17:59 Last Admin: 05/16/18 06:20 Dose: 25 mg Documented by: Metoprolol Tartrate (Lopressor) 2.5 mg IV Q6 PRN PRN Reason: Tachycardia Stop: 06/14/18 17:36 Ondansetron HCl (Zofran) 4 mg IV Q6H PRN PRN Reason: Nausea Stop: 06/14/18 17:36 Polyethylene Glycol (Miralax Powder Packet) 17 gm PO DAILY PRN PRN Reason: Constipation Stop: 06/14/18 17:36 Vitamin D (Vitamin D3) 1,000 units PO DAILY [facility]KE Stop: 06/15/18 08:59 Last Admin: 05/16/18 09:15 Dose: 1,000 units Documented by: Zolpidem Tartrate (Ambien) 5 mg PO HS PRN PRN Reason: Sleep Stop: 06/14/18 20:10 Last Admin: 05/15/18 23:46 Dose: 5 mg Documented by:
--- NOTE | 2018-05-16 11:36 | Cardiology Progress Note ---
Date of Service May 16, 2018 Assessment & Plan (1) Atrial fibrillation, new onset: Heart rate coming under better control, patient asymptomatic. Duration of atrial fibrillation and question possibly months by description. Plan: Change metoprolol to metoprolol succinate 50 mg twice per day. Initiate anticoagulation with Eliquis 5 mg p.o. twice daily. Stop heparin infusion. Ambulate patient if no complaints may be discharged with planned follow-up cardiology proximally 3 weeks time. At that point we will reassess need for rate control versus attempt to return to sinus rhythm. Patient does follow with PCP on 06/01/2018. Other issues patient has chronic arthritis and uses a sizable amount of ibuprofen. Would consider switch to Celebrex plus Tylenol. Stop aspirin (2) HTN (hypertension): Subjective Patient seen and examined, chart, telemetry, laboratory studies reviewed. No complaints overnight with heart rate becoming better controlled . No chest pains, shortness of breath, dizziness, lightheadedness, fevers chills. No bl eeding difficulties Physical Exam Vital Signs (Past 24 Hours): Last Vital Signs Temp 36.6 C 05/16/18 11:16 Pulse 94 H 05/16/18 11:16 Resp 20 05/16/18 11:16 BP 110/85 05/16/18 11:16 Pulse Ox 97 05/16/18 11:16 Constitutional: WD/WN, vitals as above Eyes: PERRL, conjunctivae normal, anicteric sclerae Neck: trachea midline, no thyromegaly Respiratory: normal respiratory effort, lungs clear to auscultation Cardiovascular: Heart Sounds: normal S1 and normal S2; no gallop and no cardiac rub Vessels: no JVD Extremities: + edema (Mild chronic stasis changes) Irregularly irregular Gastrointestinal (Abdomen): normal bowel sounds, soft, nontender, no hepatosplenomegaly Musculoskeletal: no cyanosis or clubbing, extremities motor strength 5/5 Psychiatric: A+Ox3, euthymic affect Results & Data Laboratory Results Laboratory Results - last 24 hr 05/15/18 05/15/18 05/15/18 13:45 13:45 13:45 WBC 6.52 RBC 4.82 Hgb 14.1 Hct 44.1 MCV 91.5 MCH 29.3 MCHC 32.0 RDW Std Deviation 45.2 RDW Coeff of Melly 13.6 Plt Count 338 MPV 10.7 H Immature Gran % (Auto) 0.2 Neut % (Auto) 48.4 Lymph % (Auto) 44.9 Wood % (Auto) 5.1 Eos % (Auto) 1.2 Baso % (Auto) 0.2 Immature Gran # (Auto) 0.01 Neut # (Auto) 3.16 Lymph # (Auto) 2.93 Wood # (Auto) 0.33 Eos # (Auto) 0.08 Baso # (Auto) 0.01 PT INR APTT 27.3 PTT Ratio 1.0 Sodium 139 Potassium 3.9 Chloride 104 Carbon Dioxide 27 Anion Gap 8.0 BUN 21 H Creatinine 0.90 Est Cr Clr Drug Dosing 73.1 Est GFR ( Amer) 77.2 Est GFR (Non-Af Amer) 66.6 BUN/Creatinine Ratio 23.1 H Glucose 105 H Calcium 9.7 Magnesium 2.2 Total Bilirubin 0.3 AST 20 ALT 31 Alkaline Phosphatase 76 POC Troponin I Troponin I Total Protein 7.8 Albumin 4.1 Globulin 3.7 Albumin/Globulin Ratio 1.1 TSH 2.200 05/15/18 05/15/18 05/15/18 14:03 20:39 20:39 WBC RBC Hgb Hct MCV MCH MCHC RDW Std Deviation RDW Coeff of Melly Plt Count MPV Immature Gran % (Auto) Neut % (Auto) Lymph % (Auto) Wood % (Auto) Eos % (Auto) Baso % (Auto) Immature Gran # (Auto) Neut # (Auto) Lymph # (Auto) Wood # (Auto) Eos # (Auto) Baso # (Auto) PT INR APTT 90.6 H* PTT Ratio 3.3 Sodium Potassium Chloride Carbon Dioxide Anion Gap BUN Creatinine Est Cr Clr Drug Dosing Est GFR ( Amer) Est GFR (Non-Af Amer) BUN/Creatinine Ratio Glucose Calcium Magnesium Total Bilirubin AST ALT Alkaline Phosphatase POC Troponin I < 0.03 Troponin I < 0.015 Total Protein Albumin Globulin Albumin/Globulin Ratio TSH 05/16/18 05/16/18 05/16/18 04:30 04:30 04:30 WBC 6.41 RBC 4.27 Hgb 12.7 Hct 39.3 MCV 92.0 MCH 29.7 MCHC 32.3 RDW Std Deviation 45.8 RDW Coeff of Melly 13.7 Plt Count 300 MPV 10.0 Immature Gran % (Auto) Neut % (Auto) Lymph % (Auto) Wood % (Auto) Eos % (Auto) Baso % (Auto) Immature Gran # (Auto) Neut # (Auto) Lymph # (Auto) Wood # (Auto) Eos # (Auto) Baso # (Auto) PT 10.8 INR 1.1 APTT 63.3 H* PTT Ratio 2.3 Sodium 140 Potassium 4.4 Chloride 110 H Carbon Dioxide 29 Anion Gap 1.0 L BUN 21 H Creatinine 0.86 Est Cr Clr Drug Dosing 84.8 Est GFR ( Amer) 81.6 Est GFR (Non-Af Amer) 70.4 BUN/Creatinine Ratio 23.9 H Glucose 94 Calcium 8.5 Magnesium 2.1 Total Bilirubin AST ALT Alkaline Phosphatase POC Troponin I Troponin I < 0.015 Total Protein Albumin Globulin Albumin/Globulin Ratio TSH Diagnostic Findings [id number] 06:35:53 [facility] Atrial fibrillation Cannot rule out Anterior infarct (cited on or before 16-MAY-2018) Abnormal ECG When compared with ECG of 15-MAY-2018 13:23, Vent. rate has decreased BY 59 BPM Nonspecific T wave abnormality no longer evident in Lateral leads
[2018-05-16] MEDS ORDERED: APIXABAN 5 MG TABLET PO SCH (11:45)
[2018-05-16] MEDS ORDERED: METOPROLOL SUCC 50MG EXT REL TAB PO SCH (11:45)
--- NOTE | 2018-05-17 08:14 | Discharge Summary ---
Date of Service May 17, 2018 Admission HPI Per Admitting Provider Patient is a 67-year-old female with history of hypertension, dyslipidemia, arthritis, anxiety and depression presents with history of palpitations since 6 months duration. Patient states having palpitations intermittently since 6 months duration which have been progressively worsening lately. Reports associated shortness of breath. States her symptoms worsen with exertion and improve with rest. Also reports associated dizziness but denies any history of syncope. Patient was noted to be in A. fib RVR with heart rate in 150s when in ED. She was started on heparin and Cardizem drip while in ED. Denies any h istory of chest pain, pedal edema, fever, chills, nausea, vomiting, abdominal pain, diarrhea, dysuria, hematuria, recent change in medications, any bleeding issues. Discussed with cardiology, Dr. Hopson while in ED. Principal Diagnosis Atrial fibrillation with RVR Discharge Exam Constitutional WD/WN, vitals as above Eyes PERRL, conjunctivae normal, anicteric sclerae ENMT external ear and nose normal, oropharynx normal Neck trachea midline, no thyromegaly Respiratory normal respiratory effort, lungs clear to auscultation Cardiovascular Rate/Rhythm: regular rate; + abnormal rhythm Heart Sounds: normal S1 and normal S2 Gastrointestinal (Abdomen) normal bowel sounds, soft, nontender, no hepatosplenomegaly Discharge Data Allergies Allergy/AdvReac Type Severity Reaction Status Date / Time morphine Allergy Unknown Verified 05/15/18 13:50 Consultations 05/15/18 15:02 ED Decision to Admit Stat 05/15/18 17:37 Consult Cardiology Routine Consult Case Management - Discharge Planning Routine Hospital Course (1) Atrial fibrillation with RVR: Atrial Fibrillation RVR: New Onset TSH: normal CXR:No acute process. Check ECHO; mild concentric left ventricular hypertrophy, no regional wall motion abnormality, EF 55-60%, mild left atrial enlargement and no significant valvular abnormalities Normal electrolytes Serial troponins remained negative for any ACS Started was on Cardizem drip and later on discontinued with initiation of beta- rachel Started 1 intravenous heparin and likely to have long-term oral anticoagulation Appreciate cardiology input and recommendation Patient remained asymptomatic since admission Hypertension: Stable Continue Lisinopril Blood pressure is controlled Dyslipidemia: Continue Lipitor anxiety and depression Continue Lexapro DVT Px: on Heparin ggt Code Status: Full Code Disposition: Expect to discharge home when stable Likely to be discharged in a day or 2 on oral anticoagulation likely Eliquis Total Time Total Time Spent Total Time Spent (In Minutes): 35 minutes Total Time Includes: Examination of the Patient, Discharge Planning and Medication Reconciliation Discharge Plan Discharge Items Patient Disposition: Home - Self-Care Reason For Visit: PALPITATIONS Discharge Diagnosis: Atrial fibrillation with RVR Condition: Good Discharge Goals: Decrease discomfort Activity: Resume your previous activity Non-emergency contact: Primary Care Provider Call non-emergency contact if: you have any medication questions and your symptoms worsen Follow-up/Referrals: Carey Serrano MD [Primary Care Provider] - (Your doctor's office will call with appointment on Friday) Diet: Heart Healthy Add Provider Instructions: Avoid strenuous exercise and avoid excessive coffee. No NSAID use Prescriptions: New metoprolol succinate 50 mg Tablet Extended Release 24 Hr 50 mg PO BID 30 Days Qty: 60 RF: 0 Eliquis 5 mg Tablet 5 mg PO BID 30 Days Qty: 60 RF: 0 Continued atorvastatin 10 mg Tablet 10 mg PO HS RF: 0 lorazepam 0.5 mg Tablet 0.5 mg PO DAILY PRN (Reason: Anxiety) RF: 0 lisinopril 10 mg Tablet 5 mg PO DAILY RF: 0 escitalopram oxalate 20 mg Tablet 20 mg PO DAILY RF: 0 cholecalciferol (vitamin D3) 1,000 unit Tablet 1,000 unit PO DAILY RF: 0 Discontinued ibuprofen 200 mg Tablet 200 - 600 mg PO Q4H PRN (Reason: Pain) RF: 0 Stand-Alone Forms: [facility] Discharge Orders: Discharge Order (Routine); Ordered 05/16/18 Ordered By: Abhijit Partida Admission Data Admit Date/Time: 05/15/18 15:44 Attending Provider: Abhijit Partida Admit Provider: Derrick Salter Primary Care Provider: Carey Serrano Other Providers: Derrick Salter ; Stef Hopson Service: Telemetry Other Interventions: Discharge Summary Assessment (RN) Last Done: 05/16/18 14:02 DC Date/Time DO NOT enter until pt leaves facility: 05/16/18 14:55
--- NOTE | 2018-05-19 12:14 | Coding Query ---
BMI To promote full compliance with coding requirements relating to patient care, physician participation is requested in all cases of assistant director of residence life uncertainty. Please assist us with the question(s) below: Please place an X within the parenthesis (x). If other, please document: BMI 19.2 was documented in this record for this patient. If the BMI is significant, please check the box that provides a more specific associated diagnosis: ( ) Overweight/Obese ( ) Obesity ( ) Morbid obesity ( ) Obesity Hypoventilation Syndrome (OHS) ( +) Heathy weight, not significant ( ) Underweight/Thin ( ) Other, please specify Thank you Dai CRAWFORD
== END 2018-05-16 14:55 | disposition home or self-care (01) | DRG 310 ==
LOC: ED 13:15 → 2E 15:44

== ENCOUNTER 2022-01-07 19:41 | Inpatient (IN) ==
[2022-01-07 22:01] LABS: Basophils # (auto) 0.04 K/uL (0-0.2); Basophils % (auto) 0.5 %; Eosinophils # (auto) 0.16 K/uL (0-0.50); Eosinophils % (auto) 1.9 %; Hematocrit (blood only) 40.3 % (34.1-44.9); Hemoglobin 13.1 g/dl (12.0-16.0); Immature Granulocytes # (auto) 0.02 K/uL (0.00-0.02); Immature Granulocytes % (auto) 0.2 %; Lymphocytes # (auto) 3.76 K/uL (1.2-3.4); Lymphocytes % (auto) 45.5 %; Mean Corpuscular Hemoglobin 29.8 pg (25.0-34.0); Mean Corpuscular Hgb Conc 32.5 g/dL (32.0-36.0); Mean Corpuscular Volume 91.6 fL (80.0-100.0); Mean Platelet Volume 10.8 fL (9.4-12.3); Monocytes # (auto) 0.57 K/uL (0.24-0.82); Monocytes % (auto) 6.9 %; Neutrophils # (auto) 3.72 K/uL (1.4-6.5); Platelet Count 306 K/uL (130-400); RDW Coefficient of Variation 13.2 % (11.5-14.5); RDW Standard Deviation 44.1 fL (36.4-46.3); White Blood Count 8.27 K/ul (4.8-10.8)
[2022-01-07 22:19] LABS: Partial Thromboplastin Time 27.9 Seconds (21.0-31.0); Prothrombin Time 10.5 Seconds (9.0-12.0)
[2022-01-07 22:22] LABS: Albumin Globulin Ratio 1.5 (0.9-2); Albumin Level 4.5 gm/dl (3.4-5.0); BUN Creatinine Ratio 16.5 (10-20); Bilirubin,Total 0.3 mg/dl (0.2-1.0); Calcium 9.8 mg/dl (8.5-10.1); Creatinine Clr Calc Pharmacy 60.6 ml/min; Est GFR (African American) 55.8 ml/min; Est GFR (Non-African American) 48.2 ml/min; Potassium 4.3 mmol/L (3.5-5.1); Total Protein 7.5 gm/dl (6.0-8.3)
[2022-01-08] MEDS ORDERED: METOPROLOL TARTRATE 1 MG/ML VIAL IV STA (02:15)
[2022-01-08] MEDS ORDERED: NITROGLYCERIN SL 0.4 MG/TAB TAB SL PRN (06:42)
[2022-01-08] MEDS ORDERED: ACETAMINOPHEN 325 MG TAB PO PRN (06:42)
[2022-01-08] MEDS ORDERED: METOPROLOL TARTRATE 1 MG/ML VIAL IV PRN (06:42)
[2022-01-08] MEDS ORDERED: LORazepam 0.5 MG TAB PO PRN (06:42)
[2022-01-08] MEDS ORDERED: FAMOTIDINE 20 MG TAB PO PRN (06:42)
--- NOTE | 2022-01-08 06:54 | Emergency Department Note ---
Impression & Plan Atrial fibrillation with rapid ventricular response Admit to the [facility] ED Provider Note NAME: AMELIE LAURA AGE: 71 SEX: F ARRIVES VIA: Walk-In INFORMANT: Patient ED PROVIDER(S): Mary Ferrera DO CHIEF COMPLAINT: Atrial fib PLAN: Disposition: Admit to the [facility] Condition: Good MEDICAL DECISION MAKING: This is a 71-year-old female patient who presents to the emergency department with atrial fibrillation. She was sent here by her PCP and squad leader for admission to the hospital. They are planning to treat the patient with IV an tiarrhythmic therapy. The patient is essentially asymptomatic but does have A. fib with RVR. She was treated with IV Lopressor which brought her rate down. Laboratory studies were unremarkable. She remained asymptomatic while here in the emergency department. I discussed the case with the [facility] and they will evaluate for further management. Triage Nursing notes reviewed and agree with them. Vital Signs: reviewed and remarkable for tachycardia Differential diagnosis: Cardiac dysrhythmia Cardiac ischemia Electrolyte abnormality ER treatment provided: IV Lopressor Diagnostics interpreted by me: ECG: A. fib at a rate of [address] segment elevation or signs of ischemia Cardiac Monitoring: A. fib at a rate of 112 Laboratory studies: See below Imaging studies: As per my interpretation Chest x-ray: No cardiomegaly or pleural effusions. HPI: 71/F arrives for evaluation of A. fib. Patient has had persistent A. fib this week thought to have been precipitated by symptoms of a URI last week. She does describe some shortness of breath with walking. She saw her PCP and c ardiologist who directed her here to the emergency department for admission to the hospital. They plan to place her on a cardiac rehabilitation specialist and administer IV antidysrhythmic's. ROS: See above HPI for pertinent positives & negatives. A total of 10 systems reviewed and were otherwise negative. PAST MEDICAL HISTORY:See Below PAST SURGICAL HISTORY:See Below FAMILY HISTORY:See Below SOCIAL HISTORY:See Below HOME MEDICATIONS:See list ALLERGIES:See list VITALS:See Below PHYSICAL EXAMINATION: HEENT: Head - normocephalic and atraumatic Pupils are equal, round, and reactive to light. Extraocular eye muscles are intact, and sclera are anicteric. Nose - moist nasal mucosa without discharge. Mouth - moist buccal mucosa. Oropharynx is nonerythematous and there is no tonsillar exudate or edema noted. Neck: Supple; no JVD, nuchal rigidity, cervical lymphadenopathy, or auscultated bruits. Heart: Irregularly irregular rhythm with a tachycardic rate. There is a normal S1 and S2 with no murmurs, clicks, or gallops appreciated. Lungs: Clear to auscultation bilaterally with no wheezes, rales, or rhonchi. Abdomen: Soft, completely nontender, nondistended, with good bowel sounds. There are no palpable pulsatile masses or hepatosplenomegaly. There is no guard ing, rigidity, or rebound noted. Extremities: 2+ pitting edema both lower extremities with the right being slightly worse than the left. Skin: warm and dry with good turgor and no rashes. ED COURSE: Times/Reassessments: 140: Patient was evaluated in room A-10. Nursing protocols were performed and laboratory studies were drawn as above. A twelve-lead EKG was obtained as described above. An order was placed for continuous cardiac monitoring. The patient was in atrial fibrillation with a rapid ventricular response at a rate of 112. A portable chest x-ray was performed. Patient was given a dose of IV Lopressor which did reduce her rate. She remained asymptomatic while here in the emergency department. I discussed the case with the [facility] and they will evaluate for further management. Mary Ferrera DO Past Med/Surg History Medical History Anxiety Atrial fibrillation dx several years ago and has episodes of needing cardioversion Depression GERD (gastroesophageal reflux disease) History of cardioversion about 2 years ago Hyperlipidemia Hypertension Obesity Osteoarthritis Surgical History H/O: hysterectomy ODALIS History of arthroscopy BILATERAL KNEE History of colonoscopy History of total hip arthroplasty BILATERAL History of total knee replacement BILATERAL Hx of foot surgery right S/P bladder repair BLADDER TACK S/P epidural steroid injection lumbar bulge disc S/P sclerotherapy of varicose veins AT AGE 25 Family History Brother Family hx of colon cancer Social History (Updated 04/19/21 @ 08:51 by Farzaneh Singh RN) Smoking Status: Never smoker Second Hand Exposure: No; Hx Alcohol Use: No Hx Substance Use: No Preferred Language: Maltese Communication Ability: Effective Curatorial Specialist Required: No Beliefs That Will Affect Care: None Current Living Situation: Alone current occupational status: retired Other Information That Helps Us Care for You: No Feels Safe at Home: Yes Safety Concerns: Feels Safe At This Time Assistive Devices: Glasses Allergies Allergies Allergy/AdvReac Type Severity Reaction Status Date / Time adhesive Allergy Unknown SKIN Verified 01/08/22 01:30 IRRITATION-WITH EKG PATCHES morphine Allergy Unknown ITCHING Verified 01/08/22 01:29 hydrocodone Allergy itching Verified 01/08/22 01:30 hydromorphone [From Dilaudid] Allergy itching Verified 01/08/22 01:30 oxycodone Allergy itching Verified 01/08/22 01:30 Home Meds Home Medications Medication Instructions Recorded Confirmed atorvastatin 10 mg tablet 10 mg PO HS 05/15/18 01/08/22 cholecalciferol (vitamin D3) 25 1,000 unit PO QAM 05/15/18 01/08/22 mcg (1,000 unit) tablet lorazepam 0.5 mg tablet 0.5 mg PO HS PRN Anxiety 05/15/18 01/08/22 apixaban 5 mg tablet (Eliquis) 5 mg PO BID 07/01/18 01/08/22 bupropion HCl 300 mg 24 hr tablet, 300 mg PO QAM 01/08/22 01/08/22 extended release famotidine 20 mg tablet 20 mg PO BID PRN Heartburn 01/08/22 01/08/22 hydrochlorothiazide 25 mg tablet 12.5 mg PO . 2-3 DAYS PER WEEK 01/08/2203/31 metoprolol succinate 50 mg capsule 50 mg PO BID 01/08/22 01/08/22 sprinkle, ext. release 24 hr Results & Data (ED) Vital Signs Vital Signs - 24 hr 01/07/22 19:53 01/08/22 01:22 01/08/22 02:45 Temperature 36.2 C L Temperature Source Temporal Artery Scan Pulse Rate 122 H 124 H Pulse Rate [Right] 115 H Pulse Rhythm Regular Pulse Strength Normal Pulse Strength [Right] Normal Respiratory Rate 20 20 Respiratory Effort / Characteristics Non-Labored Spontaneous Non-Labored Spontaneous Respiratory Depth Normal Normal Blood Pressure 146/79 H 138/91 Blood Pressure [Right Arm] 140/97 Blood Pressure Mean 101 Blood Pressure Mean [Right Arm] 111 Blood Pressure Position Sitting Blood Pressure Position [Right Arm] Pulse Oximetry 97 99 Oxygen Delivery Method Room Air Room Air Sepsis Recent Fever Within 48 Hours No Sepsis New/Unexplained Change in Mental Status N/A Sepsis Action Taken by Nursing No Action Required 01/08/22 02:57 Temperature Temperature Source Pulse Rate Pulse Rate [Right] 118 H Pulse Rhythm Pulse Strength Pulse Strength [Right] Respiratory Rate 18 Respiratory Effort / Characteristics Non-Labored Spontaneous Respiratory Depth Normal Blood Pressure Blood Pressure [Right Arm] 138/91 Blood Pressure Mean Blood Pressure Mean [Right Arm] 106 Blood Pressure Position Blood Pressure Position [Right Arm] Lying Pulse Oximetry 97 Oxygen Delivery Method Room Air Sepsis Recent Fever Within 48 Hours Sepsis New/Unexplained Change in Mental Status Sepsis Action Taken by Nursing Laboratory Data Result diagrams: 01/08/22 09:23 01/08/22 09:23 Lab Results 01/07/22 01/07/22 01/07/22 Range/Units 21:43 21:43 21:43 WBC 8.27 (4.8-10.8) K/ul RBC 4.40 (3.93-5.22) M/uL Hgb 13.1 (12.0-16.0) g/dl Hct 40.3 (34.1-44.9) % MCV 91.6 (80.0-100.0) fL MCH 29.8 (25.0-34.0) pg MCHC 32.5 (32.0-36.0) g/dL RDW Std Deviation 44.1 (36.4-46.3) fL RDW Coeff of Melly 13.2 (11.5-14.5) % Plt Count 306 (130-400) K/uL MPV 10.8 (9.4-12.3) fL Immature Gran % (Auto) 0.2 % Neut % (Auto) 45.0 % Lymph % (Auto) 45.5 % [place] % (Auto) 6.9 % Eos % (Auto) 1.9 % Baso % (Auto) 0.5 % Neut # (Auto) 3.72 (1.4-6.5) K/uL Lymph # (Auto) 3.76 H (1.2-3.4) K/uL [place] # (Auto) 0.57 (0.24-0.82) K/uL Eos # (Auto) 0.16 (0-0.50) K/uL Baso # (Auto) 0.04 (0-0.2) K/uL Immature Gran # (Auto) 0.02 (0.00-0.02) K/uL PT 10.5 (9.0-12.0) Seconds INR 1.0 (0.9-1.1) APTT 27.9 (21.0-31.0) Seconds PTT Ratio 1.0 Sodium 140 (136-145) mmol/L Potassium 4.3 (3.5-5.1) mmol/L Chloride 106 (98-107) mmol/L Carbon Dioxide 26 (21-32) mmol/L Anion Gap 8 (3-11) BUN 19 (6-23) mg/dl Creatinine 1.15 (0.6-1.2) mg/dl Est Cr Clr Drug Dosing 60.6 ml/min Est GFR ( Amer) 55.8 ml/min Est GFR (Non-Af Amer) 48.2 ml/min BUN/Creatinine Ratio 16.5 (10-20) Glucose 101 H (70-99(Fasting)) mg/dl Calcium 9.8 (8.5-10.1) mg/dl Total Bilirubin 0.3 (0.2-1.0) mg/dl AST 22 (13-39) U/L ALT 21 (7-52) U/L Alkaline Phosphatase 78 (34-104) U/L Troponin I High Sens 5.0 (0-14) pg/ml Total Protein 7.5 (6.0-8.3) gm/dl Albumin 4.5 (3.4-5.0) gm/dl Globulin 3.0 (2.5-4.0) gm/dl Albumin/Globulin Ratio 1.5 (0.9-2) SARS-CoV-2, RNA, NAAT (NEGATIVE) 01/07/22 Range/Units 21:46 WBC (4.8-10.8) K/ul RBC (3.93-5.22) M/uL Hgb (12.0-16.0) g/dl Hct (34.1-44.9) % MCV (80.0-100.0) fL MCH (25.0-34.0) pg MCHC (32.0-36.0) g/dL RDW Std Deviation (36.4-46.3) fL RDW Coeff of Melly (11.5-14.5) % Plt Count (130-400) K/uL MPV (9.4-12.3) fL Immature Gran % (Auto) % Neut % (Auto) % Lymph % (Auto) % [place] % (Auto) % Eos % (Auto) % Baso % (Auto) % Neut # (Auto) (1.4-6.5) K/uL Lymph # (Auto) (1.2-3.4) K/uL [place] # (Auto) (0.24-0.82) K/uL Eos # (Auto) (0-0.50) K/uL Baso # (Auto) (0-0.2) K/uL Immature Gran # (Auto) (0.00-0.02) K/uL PT (9.0-12.0) Seconds INR (0.9-1.1) APTT (21.0-31.0) Seconds PTT Ratio Sodium (136-145) mmol/L Potassium (3.5-5.1) mmol/L Chloride (98-107) mmol/L Carbon Dioxide (21-32) mmol/L Anion Gap (3-11) BUN (6-23) mg/dl Creatinine (0.6-1.2) mg/dl Est Cr Clr Drug Dosing ml/min Est GFR ( Amer) ml/min Est GFR (Non-Af Amer) ml/min BUN/Creatinine Ratio (10-20) Glucose (70-99(Fasting)) mg/dl Calcium (8.5-10.1) mg/dl Total Bilirubin (0.2-1.0) mg/dl AST (13-39) U/L ALT (7-52) U/L Alkaline Phosphatase (34-104) U/L Troponin I High Sens (0-14) pg/ml Total Protein (6.0-8.3) gm/dl Albumin (3.4-5.0) gm/dl Globulin (2.5-4.0) gm/dl Albumin/Globulin Ratio (0.9-2) SARS-CoV-2, RNA, NAAT NEGATIVE (NEGATIVE) Administered Medications Apixaban (Apixaban 5 Mg Tablet) 5 mg PO BID MIKE Stop: 02/07/22 08:59 Last Admin: 01/08/22 09:31 Dose: 5 mg Documented By: KIRK Bupropion HCl (Bupropion Xl 300 Mg Tabcr) 300 mg PO QAM MIKE Stop: 02/07/22 08:59 Last Admin: 01/08/22 09:31 Dose: 300 mg Documented By: KIRK Sotalol HCl (Sotalol Hcl 80 Mg Tab) 80 mg PO BID MIKE Stop: 02/07/22 09:59 Last Admin: 01/08/22 11:16 Dose: 80 mg Documented By: DARINEL Vitamin D (Cholecalciferol 1,000 Units 25 Mcg Tab) 1,000 units PO QAM MIKE Stop: 02/07/22 08:59 Last Admin: 01/08/22 09:31 Dose: 1,000 units Documented By: KIRK Discontinued Medications Metoprolol Tartrate (Metoprolol Tartrate 1 Mg/Ml Vial) 5 mg IV NOW STA Stop: 01/08/22 02:16 Last Admin: 01/08/22 02:45 Dose: 5 mg Documented By: SANJIV Imaging Data Radiologist's Impression: Chest X-Ray 01/07/22 19:58 XR chest 1V portable CLINICAL HISTORY: Atypical chest pain. COMPARISON STUDY: Chest radiograph January 23, 2021. FINDINGS: Lung volumes are normal. Lungs are clear. There is no pneumothorax or pleural effusion. Mild cardiomegaly is unchanged. Mediastinal contours are normal. There is no evidence for pulmonary edema. IMPRESSION: No acute cardiopulmonary findings. ACT 112: Negative or not required by law. Electronically signed by: Desmond Wells M.D. 01/08/2022 7:50 AM Discharge Plan Visit Data Chief Complaint: Cardiac Assessment Stated Complaint: NEEDS COVID TEST,B4 BEING ADMITTED- DR CALLED ED Provider: Mary Ferrera Discharge Problem: Atrial fibrillation with rapid ventricular response Patient Disposition: Admitted As Inpatient Discharge Instructions Interventions: ED Discharge Assessment Last Done: 01/08/22 09:40
--- NOTE | 2022-01-08 07:45 | History and Physical Report ---
DATE OF ADMISSION: 01/08/2022. CHIEF COMPLAINT: Rapid AFib. HISTORY OF PRESENT ILLNESS: This is a 71-year-old female with past medical history significant for hyperlipidemia, prediabetes, hypertension, longstanding persistent atrial fibrillation, GERD, generalized osteoarthritis, chronic pain syndrome, depression, generalized anxiety disorder, presents because of history of atrial fibrillation with plan to start a new medication and to monitor in the hospital. The patient says she has had multiple cardioversions and medications, but it is not getting better, so cardiology want to change the medications and monitor in hospital, but in the ER, she was in rapid AFib. She was given a dose of IV Lopressor. Now the heart rate is in the low 100s. Resting comfortably. Denies any chest pain. No shortness of breath, no nausea, no vomiting, no abdominal pain, no headache, no blurred visions, no runny nose, no sore throat. No cough. Normal bowel and bladder movements. Resting comfortably and hemodynamically stable. ALLERGIES: ADHESIVES, MORPHINE, HYDROCODONE, OXYCODONE, HYDROMORPHONE. PAST MEDICAL HISTORY: As mentioned above. PAST SURGICAL HISTORY: Left knee arthroscopy, bilateral knee arthroplasty, colonoscopy, tubal ligations, parapharyngeal defect repair, bladder and vaginal repair, repair of bowel pouch, total abdominal hysterectomy with removal of tubes, bilateral hip replacements. MEDICATIONS: The patient is on atorvastatin 10 mg p.o. at bedtime, bupropion 300 mg p.o. a.m., vitamin D 1000 International Units p.o. a.m., Eliquis 5 mg p.o. b.i.d., famotidine 20 mg p.o. b.i.d. p.r.n., hydrochlorothiazide 12.5 mg p.o. 2-3 days a week, lorazepam 0.5 mg p.o. at bedtime p.r.n., metoprolol succinate 50 mg p.o. b.i.d. FAMILY HISTORY: Significant for mother has asthma, emphysema, heart disease, hypertension. Father has heart disease, hyperlipidemia, hypertension, grandmother had breast cancer, aunt has colon and breast cancer, brother has colon cancer. SOCIAL HISTORY: Quit smoking in 1999, smoked 1 pack a day. No alcohol use. No drug use. REVIEW OF SYSTEMS: As per HPI. Rest of review of systems is negative. PHYSICAL EXAMINATION: GENERAL: The patient is of moderate build, not in acute distress. VITAL SIGNS: Temperature 36.2, pulse 100, respiratory rate 16, blood pressure 125/78, oxygen 95% on room air. HEENT: Pupils equal, round and reactive to light. Oral mucosa moist. NECK: No JVD or neck masses. CARDIOVASCULAR: S1 and S2 heard, tachycardia, regular rhythm. No murmurs. RESPIRATORY SYSTEM: Normal AP diameter. No accessory muscle use. No wheezing, no crackles. ABDOMEN: Soft, bowel sounds present, nontender, no distention. CENTRAL NERVOUS SYSTEM: Cranial nerves II-XII grossly intact, nonfocal. EXTREMITIES: No edema, no erythema. LABORATORY DATA: WBC 8.2, hemoglobin 13.1, hematocrit 40.3, platelets 306. PT 10.5, INR 1, APTT 27.9. Sodium 140, potassium 4.3, chloride 106, bicarb 26, BUN 19, creatinine 1.1, serum glucose 101, calcium 9.8, total bilirubin 0.3, AST , ALT 21, alkaline phosphatase 78. Troponin I high sensitivity 5, SARS-CoV-2 rapid test negative. IMAGING DATA: Chest x-ray, no acute findings. EKG: Rapid AFib with rate of 120, left axis deviation, no acute ST changes seen. ASSESSMENT AND PLAN: This 71-year-old female presents with rapid atrial fibrillation and there is plan to start a new medication. 1. Rapid atrial fibrillation: After IV Lopressor, the patient's rate has improved. Continue her home metoprolol and home Eliquis. Starting of new medications as per cardiology. Iv Lopressor prn fopr now.Closely monitor in the tele floor. 2. History of prediabetes: Follow HbA1c levels. 4. Gastroesophageal reflux disease: On famotidine. 5. Depression: On bupropion and Ativan p.r.n. 6. Hypertension: On metoprolol and hydrochlorothiazide. 7. Deep venous thrombosis prophylaxis: On Eliquis. DISPOSITION: Closely monitor in the tele floor. Level 1 full code. Expect to discharge home and follow with family doctor. Job ID: [id number] [facility]
--- NOTE | 2022-01-08 07:52 | XRay Report ---
XR chest 1V portable CLINICAL HISTORY: Atypical chest pain. COMPARISON STUDY: Chest radiograph January 23, 2021. FINDINGS: Lung volumes are normal. Lungs are clear. There is no pneumothorax or pleural effusion. Mil d cardiomegaly is unchanged. Mediastinal contours are normal. There is no evidence for pulmonary brock a. IMPRESSION: No acute cardiopulmonary findings. ACT 112: Negative or not required by law. Electronically signed by: Desmond Wells M.D. 01/08/2022 7:50 AM
[2022-01-08] MEDS ORDERED: METOPROLOL SUCC 50MG EXT REL TAB PO SCH (09:00)
[2022-01-08] MEDS: CHOLECALCIFEROL 1,000 UNITS 25 MCG TAB PO SCH (09:31)
[2022-01-08] MEDS: buPROPion XL 300 MG TABCR PO SCH (09:31)
[2022-01-08] MEDS: APIXABAN 5 MG TABLET PO SCH ×2 (09:31→20:04)
[2022-01-08 09:43] LABS: Basophils # (auto) 0.03 K/uL (0-0.2); Basophils % (auto) 0.5 %; Eosinophils # (auto) 0.11 K/uL (0-0.50); Eosinophils % (auto) 1.8 %; Hematocrit (blood only) 40.9 % (34.1-44.9); Hemoglobin 13.1 g/dl (12.0-16.0); Immature Granulocytes # (auto) 0.01 K/uL (0.00-0.02); Immature Granulocytes % (auto) 0.2 %; Lymphocytes # (auto) 2.33 K/uL (1.2-3.4); Lymphocytes % (auto) 37.8 %; Mean Corpuscular Hemoglobin 29.5 pg (25.0-34.0); Mean Corpuscular Volume 92.1 fL (80.0-100.0); Mean Platelet Volume 10.5 fL (9.4-12.3); Monocytes # (auto) 0.38 K/uL (0.24-0.82); Monocytes % (auto) 6.2 %; Neutrophils # (auto) 3.31 K/uL (1.4-6.5); Neutrophils % (auto) 53.5 %; Platelet Count 306 K/uL (130-400); RDW Coefficient of Variation 13.2 % (11.5-14.5); RDW Standard Deviation 44.8 fL (36.4-46.3); Red Blood Count 4.44 M/uL (3.93-5.22); White Blood Count 6.17 K/ul (4.8-10.8)
[2022-01-08 10:09] LABS: Troponin I High Sensitivity 4.7 pg/ml (0-14)
[2022-01-08 10:10] LABS: BUN Creatinine Ratio 18.6 (10-20); Creatinine Clr Calc Pharmacy 71.9 ml/min; Est GFR (African American) 68.6 ml/min; Est GFR (Non-African American) 59.2 ml/min; Potassium 4.2 mmol/L (3.5-5.1)
--- NOTE | 2022-01-08 10:36 | Communication Note ---
Date of Service: January 08, 2022 Patient seen and examined in the emergency department. Telemetry shows atrial fibrillation with ventricular rate in 110s to 130s. Patient denies any complaint of chest pain, palpitation or shortness of breath. High-sensitivity troponin negative so far Cardiology on board; was started on sotalol 80 mg twice daily. Plan to monitor on telemetry and monitor her QTC
--- NOTE | 2022-01-08 11:14 | Electrocardiogram Report ---
Test Reason : Blood Pressure : / mmHG Vent. Rate : 120 BPM Atrial Rate : 129 BPM P-R Int : 000 ms QRS Dur : 088 ms QT Int : 334 ms P-R-T Axes : 000 -31 -10 degrees QTc Int : 472 ms Atrial fibrillation with rapid ventricular response Left axis deviation Poor R wave progression, consider anterior OH vs. lead placement vs. LVH Abnormal ECG When compared with ECG of 20-APR-2021 07:15, Atrial fibrillation has replaced Sinus rhythm Vent. rate has increased BY 59 BPM Confirmed by Jori Whittington ([id number]) on 01/08/2022 11:14:02 AM Referred By: Dionicio Palomino Confirmed By:Luis Whittington
[2022-01-08] MEDS: SOTALOL HCL 80 MG TAB PO SCH ×2 (11:16→20:05)
--- NOTE | 2022-01-08 14:10 | Cardiology Consultation ---
Date of Consultation January 08, 2022 Assessment & Plan (1) Atrial fibrillation with rapid ventricular response: (2) HTN (hypertension): (3) Obesity: Plan Patient is a 71-year-old female with paroxysmal atrial fibrillation who presents with at least 2-week history of intermittent palpitations increasing heart rate with exertion. Patient found to be in atrial fibrillation with a rapid response. Last cardioversion April 2021. Plan: Continue oral anticoagulation with Eliquis. Discontinue metoprolol Begin sotalol 80 mg twice per day maintaining telemetry for at least 48 hours. If no spontaneous conversion will plan on synchronized electrical cardioversion History of Present Illness Reason for Consultation: Paroxysmal atrial fibrillation with elevated ventricular sponsor Requesting Physician: Dr. Santizo Attending Physician: Jon Santizo MD History of Present Illness Patient is a 71-year-old female with ongoing medical issues 1. Paroxysmal atrial fibrillation status post synchronized electrical cardioversion July 23, 2018, April 20, 2021 2. Hypertension 3. Dyslipidemia Patient presents now noting having seen primary care physician yesterday.She noted that time symptoms of upper respiratory infection with cough sneezing headache as well as symptoms of increasing palpitations and heart pounding for at least 2 weeks duration EKG confirmed atrial fibrillation with elevated ventricular sponsor rate and patient's referred now for inpatient management, initiation of antiarrhythmic therapy Patient chronically on Eliquis for anticoagulation. Interrupted for colonoscopy on 12/13/2021 but resumed post without otherwise interruption Patient denies chest pains, shortness of breath, dizziness or lightheadedness. No syncope or near syncope. No bleeding difficulties melena melena or hematochezia No acute weight loss or gain no worsening edema. Allergies Allergy/AdvReac Type Severity Reaction Status Date / Time adhesive Allergy Unknown SKIN Verified 01/08/22 01:30 IRRITATION-WITH EKG PATCHES morphine Allergy Unknown ITCHING Verified 01/08/22 01:29 hydrocodone Allergy itching Verified 01/08/22 01:30 hydromorphone [From Dilaudid] Allergy itching Verified 01/08/22 01:30 oxycodone Allergy itching Verified 01/08/22 01:30 Home Medications Medication Instructions Recorded Confirmed Type atorvastatin 10 mg tablet 10 mg PO HS 05/15/18 01/08/22 History cholecalciferol (vitamin D3) 25 1,000 unit PO QAM 05/15/18 01/08/22 History mcg (1,000 unit) tablet lorazepam 0.5 mg tablet 0.5 mg PO HS PRN Anxiety 05/15/18 01/08/22 History apixaban 5 mg tablet (Eliquis) 5 mg PO BID 07/01/18 01/08/22 History bupropion HCl 300 mg 24 hr tablet, 300 mg PO QAM 01/08/22 01/08/22 History extended release famotidine 20 mg tablet 20 mg PO BID PRN Heartburn 01/08/22 01/08/22 History hydrochlorothiazide 25 mg tablet 12.5 mg PO . 2-3 DAYS PER WEEK 01/08/22 01/08/22 History metoprolol succinate 50 mg capsule 50 mg PO BID 01/08/22 01/08/22 History sprinkle, ext. release 24 hr Patient History Medical History Anxiety Atrial fibrillation dx several years ago and has episodes of needing cardioversion Depression GERD (gastroesophageal reflux disease) History of cardioversion about 2 years ago Hyperlipidemia Hypertension Obesity Osteoarthritis Surgical History H/O: hysterectomy ODALIS History of arthroscopy BILATERAL KNEE History of colonoscopy History of total hip arthroplasty BILATERAL History of total knee replacement BILATERAL Hx of foot surgery right S/P bladder repair BLADDER TACK S/P epidural steroid injection lumbar bulge disc S/P sclerotherapy of varicose veins AT AGE 25 Family History Brother Family hx of colon cancer Social History (Updated 04/19/21 @ 08:51 by Farzaneh Singh RN) Smoking Status: Never smoker Second Hand Exposure: No; Hx Alcohol Use: No Hx Substance Use: No Preferred Language: Tuvaluan Communication Ability: Effective 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 Beliefs That Will Affect Care: None Current Living Situation: Alone current occupational status: retired Other Information That Helps Us Care for You: No Feels Safe at Home: Yes Safety Concerns: Feels Safe At This Time Assistive Devices: Glasses Review of Systems Review of Systems: All systems reviewed & are unremarkable except as noted in HPI & below Physical Exam Constitutional: WD/WN, vitals as above + obese Eyes: PERRL, conjunctivae normal, anicteric sclerae ENMT: external ear and nose normal, oropharynx normal Neck: trachea midline, no thyromegaly Respiratory: normal respiratory effort, lungs clear to auscultation Cardiovascular: Rate/Rhythm: + tachycardic and + irregularly irregular Heart Sounds: normal S1 and normal S2; no gallop and no murmur Palpation: normal PMI Vessels: normal carotid upstroke and radial pulses present; no JVD and no carotid bruit Extremities: + edema (Mild bilateral lower extremity pedal edema) Gastrointestinal (Abdomen): normal bowel sounds, soft, nontender, no hepatosplenomegaly Musculoskeletal: no cyanosis or clubbing, extremities motor strength 5/5 Skin: Minimal erythema shins Neurologic: PERRL, EOMI, accommodation nl, no face palsy, no dysarthria Psychiatric: A+Ox3, euthymic affect Results & Data ([facility]) Vital Signs (Past 12 Hours) Vital Signs Temp Pulse Pulse Pulse Resp BP BP 01/08/22 11:45 36.7 C 97 H 18 112/71 01/08/22 10:00 01/08/22 09:56 36.6 C 125 H 20 130/102 H 01/08/22 08:21 01/08/22 08:21 106 H 14 132/91 01/08/22 06:40 112 H 18 125/78 01/08/22 05:37 100 H 16 125/78 01/08/22 02:57 118 H 18 138/91 01/08/22 02:45 124 H 138/91 Pulse Ox O2 Del Method O2 Del Method 01/08/22 11:45 97 Room Air 01/08/22 10:00 Room Air 01/08/22 09:56 97 Room Air 01/08/22 08:21 Room Air 01/08/22 08:21 97 01/08/22 06:40 96 Room Air 01/08/22 05:37 95 Room Air 01/08/22 02:57 97 Room Air 01/08/22 02:45 Laboratory Results Laboratory Results - last 24 hr 01/07/22 01/07/22 01/07/22 21:43 21:43 21:43 WBC 8.27 RBC 4.40 Hgb 13.1 Hct 40.3 MCV 91.6 MCH 29.8 MCHC 32.5 RDW Std Deviation 44.1 RDW Coeff of Melly 13.2 Plt Count 306 MPV 10.8 Immature Gran % (Auto) 0.2 Neut % (Auto) 45.0 Lymph % (Auto) 45.5 [place] % (Auto) 6.9 Eos % (Auto) 1.9 Baso % (Auto) 0.5 Neut # (Auto) 3.72 Lymph # (Auto) 3.76 H [place] # (Auto) 0.57 Eos # (Auto) 0.16 Baso # (Auto) 0.04 Immature Gran # (Auto) 0.02 PT 10.5 INR 1.0 APTT 27.9 PTT Ratio 1.0 Sodium 140 Potassium 4.3 Chloride 106 Carbon Dioxide 26 Anion Gap 8 BUN 19 Creatinine 1.15 Est Cr Clr Drug Dosing 60.6 Est GFR ( Amer) 55.8 Est GFR (Non-Af Amer) 48.2 BUN/Creatinine Ratio 16.5 Glucose 101 H Calcium 9.8 Magnesium Total Bilirubin 0.3 AST 22 ALT 21 Alkaline Phosphatase 78 Troponin I High Sens 5.0 Total Protein 7.5 Albumin 4.5 Globulin 3.0 Albumin/Globulin Ratio 1.5 Nasal Screen MRSA (PCR) SARS-CoV-2, RNA, NAAT 01/07/22 01/08/22 01/08/22 21:46 09:23 09:23 WBC 6.17 RBC 4.44 Hgb 13.1 Hct 40.9 MCV 92.1 MCH 29.5 MCHC 32.0 RDW Std Deviation 44.8 RDW Coeff of Melly 13.2 Plt Count 306 MPV 10.5 Immature Gran % (Auto) 0.2 Neut % (Auto) 53.5 Lymph % (Auto) 37.8 [place] % (Auto) 6.2 Eos % (Auto) 1.8 Baso % (Auto) 0.5 Neut # (Auto) 3.31 Lymph # (Auto) 2.33 [place] # (Auto) 0.38 Eos # (Auto) 0.11 Baso # (Auto) 0.03 Immature Gran # (Auto) 0.01 PT INR APTT PTT Ratio Sodium 140 Potassium 4.2 Chloride 105 Carbon Dioxide 29 Anion Gap 6 BUN 18 Creatinine 0.97 Est Cr Clr Drug Dosing 71.9 Est GFR ( Amer) 68.6 Est GFR (Non-Af Amer) 59.2 BUN/Creatinine Ratio 18.6 Glucose 103 H Calcium 10.0 Magnesium 2.0 Total Bilirubin AST ALT Alkaline Phosphatase Troponin I High Sens 4.7 Total Protein Albumin Globulin Albumin/Globulin Ratio Nasal Screen MRSA (PCR) SARS-CoV-2, RNA, NAAT NEGATIVE 01/08/22 01/08/22 11:00 12:47 WBC RBC Hgb Hct MCV MCH MCHC RDW Std Deviation RDW Coeff of Melly Plt Count MPV Immature Gran % (Auto) Neut % (Auto) Lymph % (Auto) [place] % (Auto) Eos % (Auto) Baso % (Auto) Neut # (Auto) Lymph # (Auto) [place] # (Auto) Eos # (Auto) Baso # (Auto) Immature Gran # (Auto) PT INR APTT PTT Ratio Sodium Potassium Chloride Carbon Dioxide Anion Gap BUN Creatinine Est Cr Clr Drug Dosing Est GFR ( Amer) Est GFR (Non-Af Amer) BUN/Creatinine Ratio Glucose Calcium Magnesium Total Bilirubin AST ALT Alkaline Phosphatase Troponin I High Sens 3.6 Total Protein Albumin Globulin Albumin/Globulin Ratio Nasal Screen MRSA (PCR) Negative SARS-CoV-2, RNA, NAAT
--- NOTE | 2022-01-08 18:28 | Electrocardiogram Report ---
Test Reason : Blood Pressure : / mmHG Vent. Rate : 119 BPM Atrial Rate : 100 BPM P-R Int : 000 ms QRS Dur : 082 ms QT Int : 346 ms P-R-T Axes : 000 -25 000 degrees QTc Int : 486 ms Atrial fibrillation with rapid ventricular response Poor R wave progression, consider anterior [place] vs. lead placement vs. LVH Abnormal ECG When compared with ECG of 07-JAN-2022 21:36, Nonspecific T wave abnormality no longer evident in Anterior leads Confirmed by Jori Whittington ([id number]) on 01/08/2022 6:28:02 PM Referred By: Dionicio Palomino Confirmed By:Luis Whittington
[2022-01-08] MEDS: ATORVASTATIN 10 MG TAB PO SCH (20:04)
[2022-01-09 04:33] LABS: Basophils # (auto) 0.03 K/uL (0-0.2); Basophils % (auto) 0.5 %; Eosinophils # (auto) 0.12 K/uL (0-0.50); Eosinophils % (auto) 2.1 %; Hematocrit (blood only) 36.5 % (34.1-44.9); Hemoglobin 11.8 g/dl (12.0-16.0); Immature Granulocytes # (auto) 0.01 K/uL (0.00-0.02); Immature Granulocytes % (auto) 0.2 %; Lymphocytes # (auto) 2.57 K/uL (1.2-3.4); Lymphocytes % (auto) 44.9 %; Mean Corpuscular Hemoglobin 29.4 pg (25.0-34.0); Mean Corpuscular Hgb Conc 32.3 g/dL (32.0-36.0); Mean Corpuscular Volume 90.8 fL (80.0-100.0); Mean Platelet Volume 10.5 fL (9.4-12.3); Monocytes # (auto) 0.43 K/uL (0.24-0.82); Monocytes % (auto) 7.5 %; Neutrophils # (auto) 2.57 K/uL (1.4-6.5); Neutrophils % (auto) 44.8 %; Platelet Count 264 K/uL (130-400); RDW Coefficient of Variation 13.2 % (11.5-14.5); RDW Standard Deviation 43.8 fL (36.4-46.3); Red Blood Count 4.02 M/uL (3.93-5.22); White Blood Count 5.73 K/ul (4.8-10.8)
[2022-01-09 05:01] LABS: BUN Creatinine Ratio 25.8 (10-20); Calcium 9.2 mg/dl (8.5-10.1); Est GFR (African American) 68.6 ml/min; Est GFR (Non-African American) 59.2 ml/min; Magnesium 1.9 mg/dl (1.7-2.4); Potassium 4.1 mmol/L (3.5-5.1)
[2022-01-09] MEDS: SOTALOL HCL 80 MG TAB PO SCH ×2 (07:57→20:00)
[2022-01-09] MEDS: CHOLECALCIFEROL 1,000 UNITS 25 MCG TAB PO SCH (07:57)
[2022-01-09] MEDS: APIXABAN 5 MG TABLET PO SCH ×2 (07:57→20:01)
[2022-01-09] MEDS: buPROPion XL 300 MG TABCR PO SCH (07:57)
[2022-01-09] MEDS ORDERED: hydroCHLOROthiazide 25 MG TAB PO SCH (09:00)
[2022-01-09 09:21] LABS: Estimated Average Glucose 114 mg/dl; Hemoglobin A1C 5.6 % (4.5-5.6)
--- NOTE | 2022-01-09 13:58 | Electrocardiogram Report ---
Test Reason : Blood Pressure : / mmHG Vent. Rate : 108 BPM Atrial Rate : 326 BPM P-R Int : 000 ms QRS Dur : 082 ms QT Int : 354 ms P-R-T Axes : 000 -25 -22 degrees QTc Int : 474 ms Atrial fibrillation with rapid ventricular response Poor R wave progression, consider anterior [place] vs. lead placement vs. LVH Abnormal ECG When compared with ECG of 08-JAN-2022 12:19, No significant change was found Confirmed by Jori Whittington ([id number]) on 01/09/2022 1:57:37 PM Referred By: Dionicio Palomino Confirmed By:Luis Whittington
--- NOTE | 2022-01-09 14:05 | Electrocardiogram Report ---
Test Reason : Blood Pressure : / mmHG Vent. Rate : 108 BPM Atrial Rate : 122 BPM P-R Int : 000 ms QRS Dur : 082 ms QT Int : 356 ms P-R-T Axes : 000 -23 -12 degrees QTc Int : 477 ms Atrial fibrillation with rapid ventricular response Nonspecific ST and T wave abnormality Abnormal ECG When compared with ECG of 08-JAN-2022 16:32, (unconfirmed) No significant change was found Confirmed by Jori Whittington ([id number]) on 01/09/2022 2:04:30 PM Referred By: Dionicio Palomino Confirmed By:Luis Whittington
--- NOTE | 2022-01-09 14:39 | Hospitalist Progress Note ---
Date of Service January 09, 2022 Assessment & Plan (1) Atrial fibrillation with rapid ventricular response: Plan Patient is a 71 yr female who presents with rapid atrial fibrillation. Afib RVR H/O paroxysmal atrial fibrillation --CXR:No acute cardiopulmonary findings. --ECHO: Left ventricle is normal in size. Moderate concentric LVH. Left ventricle wall motion is normal. EF 50 to 55%. Left atrium size is normal. No significant valvular disease. --Check TSH -- Continue sotalol 80 mg twice a day On Eliquis for anticoagulation Appreciate cardiac input Likely will need cardioversion in AM Prediabetes: HbA1c: 5.6 GERD On famotidine. Depression: On bupropion and Ativan as needed Hypertension: Continue hydrochlorothiazide, Also on Sotalol DVT Px: On Eliquis. Code Status Full Code Admission and Anticipated Discharge Date Admission Date: January 08, 2022 Subjective Patient is seen and examined at bedside Reports dyspnea on exertion Denies any chest pain, palpitation, dizziness, nausea, abdominal pain No other complaints A. fib RVR on monitor Review of Systems Review of Systems: All systems reviewed & are unremarkable except as noted in Subjective Physical Exam Physical Exam: Physical Exam: Vitals signs as noted above General Appearance:Morbidly Obese, no apparent distress Head: normocephalic, Atraumatic Eyes: normal inspection, EOMI Neck: supple, Trachea midline Respiratory/Chest: Normal breath sounds, CTA, No accessory muscle use Cardiovascular: Irregularly irregular, tachycardia, No murmur Abdomen/GI:Soft, Non tender, Bowel sounds present Extremities/Musculoskeletal:normal inspection, no edema Neurologic/Psych:AAOX3, grossly no focal neurological deficits Skin: normal color, warm Results & Data Results & Data ([facility]) Vital Signs (Past 12 Hours) Vital Signs Temp Pulse Pulse Resp BP BP Pulse Ox 01/09/22 14:03 128 H 23 01/09/22 12:13 36.8 C 95/67 L 95 01/09/22 12:13 118 H 20 01/09/22 12:12 115 H 27 H 01/09/22 12:12 95/78 L 01/09/22 12:11 127/101 H 01/09/22 12:11 118 H 31 H 01/09/22 12:00 126 H 15 01/09/22 10:00 103 H 22 01/09/22 08:00 108 H 12 01/09/22 07:55 124 H 20 01/09/22 07:55 36.7 C 123/82 95 01/09/22 07:00 115 H 01/09/22 08:00 01/09/22 04:18 36.6 C 117 H 16 103/89 98 O2 Del Method O2 Del Method 01/09/22 14:03 01/09/22 12:13 Room Air 01/09/22 12:13 01/09/22 12:12 01/09/22 12:12 01/09/22 12:11 01/09/22 12:11 01/09/22 12:00 01/09/22 10:00 01/09/22 08:00 01/09/22 07:55 01/09/22 07:55 Room Air 01/09/22 07:00 01/09/22 08:00 Room Air 01/09/22 04:18 Room Air Laboratory Results Short CBC 01/09/22 Range/Units 04:14 WBC 5.73 (4.8-10.8) K/ul Hgb 11.8 L (12.0-16.0) g/dl Hct 36.5 (34.1-44.9) % Plt Count 264 (130-400) K/uL BMP 01/09/22 04:14 Sodium 139 Potassium 4.1 Chloride 106 Carbon Dioxide 26 BUN 25 H Creatinine 0.97 Glucose 94 Calcium 9.2
--- NOTE | 2022-01-09 14:49 | Cardiology Progress Note ---
Date of Service January 09, 2022 Assessment & Plan (1) Atrial fibrillation with rapid ventricular response: (2) HTN (hypertension): (3) Obesity: Plan Patient is a 71-year-old female with paroxysmal atrial fibrillation who presents with at least 2-week history of intermittent palpitations increasing heart rate with exertion. Patient found to be in atrial fibrillation with a rapid response. Last cardioversion April 2021. Plan: Continue oral anticoagulation with Eliquis. Continue sotalol 80 mg p.o. twice daily tolerating well on EKG Tentative plans for synchronized electrical cardioversion in a.m. unless spontaneous conversion in interim Admission and Anticipated Discharge Date Admission Date: January 08, 2022 Subjective Patient seen and examined, chart, medications, telemetry reviewed. Patient remains in atrial fibrillation with elevated ventricular sponsor rate. No cardiac complaints however no dizziness or lightheadedness. No chest pains or discomfort. Echocardiogram with EF 5055% this morning no segmental abnormalities no significant valvular disease left atrial size normal Patient tolerating sotalol without QT prolongation or arrhythmia Review of Systems Review of Systems: All systems reviewed & are unremarkable except as noted in Subjective Physical Exam Constitutional: WD/WN, vitals as above + obese Eyes: PERRL, conjunctivae normal, anicteric sclerae ENMT: external ear and nose normal, oropharynx normal Neck: trachea midline, no thyromegaly Respiratory: normal respiratory effort, lungs clear to auscultation Cardiovascular: Rate/Rhythm: + tachycardic and + irregularly irregular Heart Sounds: normal S1 and normal S2; no gallop and no murmur Palpation: normal PMI Vessels: normal carotid upstroke and radial pulses present; no JVD and no carotid bruit Extremities: + edema (Mild bilateral lower extremity pedal edema) Gastrointestinal (Abdomen): normal bowel sounds, soft, nontender, no hepatosplenomegaly Musculoskeletal: no cyanosis or clubbing, extremities motor strength 5/5 Neurologic: PERRL, EOMI, accommodation nl, no face palsy, no dysarthria Psychiatric: A+Ox3, euthymic affect Results & Data ([facility]) Vital Signs (Past 12 Hours) Vital Signs Temp Pulse Pulse Resp BP BP Pulse Ox 01/09/22 14:03 128 H 23 01/09/22 12:13 36.8 C 95/67 L 95 01/09/22 12:13 118 H 20 01/09/22 12:12 115 H 27 H 01/09/22 12:12 95/78 L 01/09/22 12:11 127/101 H 01/09/22 12:11 118 H 31 H 01/09/22 12:00 126 H 15 01/09/22 10:00 103 H 22 01/09/22 08:00 108 H 12 01/09/22 07:55 124 H 20 01/09/22 07:55 36.7 C 123/82 95 01/09/22 07:00 115 H 01/09/22 08:00 01/09/22 04:18 36.6 C 117 H 16 103/89 98 O2 Del Method O2 Del Method 01/09/22 14:03 01/09/22 12:13 Room Air 01/09/22 12:13 01/09/22 12:12 01/09/22 12:12 01/09/22 12:11 01/09/22 12:11 01/09/22 12:00 01/09/22 10:00 01/09/22 08:00 01/09/22 07:55 01/09/22 07:55 Room Air 01/09/22 07:00 01/09/22 08:00 Room Air 01/09/22 04:18 Room Air Laboratory Results Laboratory Results - last 24 hr 01/08/22 01/09/22 01/09/22 21:28 04:14 04:14 WBC 5.73 RBC 4.02 Hgb 11.8 L Hct 36.5 MCV 90.8 MCH 29.4 MCHC 32.3 RDW Std Deviation 43.8 RDW Coeff of Melly 13.2 Plt Count 264 MPV 10.5 Immature Gran % (Auto) 0.2 Neut % (Auto) 44.8 Lymph % (Auto) 44.9 [place] % (Auto) 7.5 Eos % (Auto) 2.1 Baso % (Auto) 0.5 Neut # (Auto) 2.57 Lymph # (Auto) 2.57 [place] # (Auto) 0.43 Eos # (Auto) 0.12 Baso # (Auto) 0.03 Immature Gran # (Auto) 0.01 Sodium Potassium Chloride Carbon Dioxide Anion Gap BUN Creatinine Est Cr Clr Drug Dosing Est GFR ( Amer) Est GFR (Non-Af Amer) BUN/Creatinine Ratio Glucose Estimat Average Glucose 114 Hemoglobin A1c 5.6 Calcium Magnesium Troponin I High Sens 4.3 01/09/22 04:14 WBC RBC Hgb Hct MCV MCH MCHC RDW Std Deviation RDW Coeff of Melly Plt Count MPV Immature Gran % (Auto) Neut % (Auto) Lymph % (Auto) [place] % (Auto) Eos % (Auto) Baso % (Auto) Neut # (Auto) Lymph # (Auto) [place] # (Auto) Eos # (Auto) Baso # (Auto) Immature Gran # (Auto) Sodium 139 Potassium 4.1 Chloride 106 Carbon Dioxide 26 Anion Gap 7 BUN 25 H Creatinine 0.97 Est Cr Clr Drug Dosing 72.0 Est GFR ( Amer) 68.6 Est GFR (Non-Af Amer) 59.2 BUN/Creatinine Ratio 25.8 H Glucose 94 Estimat Average Glucose Hemoglobin A1c Calcium 9.2 Magnesium 1.9 Troponin I High Sens ECG Additional Comments: EKG 01/09/2022 Atrial fibrillation with elevated ventricular sponsor rate, rate 108 bpm. QTc 477 unchanged
--- NOTE | 2022-01-09 15:04 | Anesthesiology Consultation ---
Date of Service January 09, 2022 Assessment & Plan Chart Review Chart Review: Acceptable Risk for Surgery and Patient NOT seen in Pre Admission Testing Consults Requested none History Surgery Operation Date: 01/10/22 07:30 Proposed Procedures p Cardioversion Evaluator Transfer Students w/Anesthesia - Stef Hopson MD Height/Weight Height: 5 ft 9 in Weight: 112 kg Allergies Allergy/AdvReac Type Severity Reaction Status Date / Time adhesive Allergy Unknown SKIN Verified 01/08/22 01:30 IRRITATION-WITH EKG PATCHES morphine Allergy Unknown ITCHING Verified 01/08/22 01:29 hydrocodone Allergy itching Verified 01/08/22 01:30 hydromorphone [From Dilaudid] Allergy itching Verified 01/08/22 01:30 oxycodone Allergy itching Verified 01/08/22 01:30 Medications Home Medications Medication Instructions Recorded Confirmed Last Taken atorvastatin 10 mg tablet 10 mg PO HS 05/15/18 01/08/22 07/23/18 cholecalciferol (vitamin D3) 25 1,000 unit PO QAM 05/15/18 01/08/22 07/23/18 mcg (1,000 unit) tablet lorazepam 0.5 mg tablet 0.5 mg PO HS PRN Anxiety 05/15/18 01/08/22 07/22/18 apixaban 5 mg tablet (Eliquis) 5 mg PO BID 07/01/18 01/08/22 07/23/18 bupropion HCl 300 mg 24 hr tablet, 300 mg PO QAM 01/08/22 01/08/22 Unknown extended release famotidine 20 mg tablet 20 mg PO BID PRN Heartburn 01/08/22 01/08/22 Unknown hydrochlorothiazide 25 mg tablet 12.5 mg PO . 2-3 DAYS PER WEEK 01/08/22 01/08/22 Unknown metoprolol succinate 50 mg capsule 50 mg PO BID 01/08/22 01/08/22 Unknown sprinkle, ext. release 24 hr Active Medications Generic Name Dose Route Start Last Admin Trade Name Freq PRN Reason Stop Dose Admin Apixaban 5 mg 01/08/22 09:00 01/09/22 07:57 Apixaban 5 Mg Tablet PO 02/07/22 08:59 5 mg BID MIKE Administration Atorvastatin Calcium 10 mg 01/08/22 21:00 01/08/22 20:04 Atorvastatin 10 Mg Tab PO 02/07/22 20:59 10 mg HS MIKE Administration Bupropion HCl 300 mg 01/08/22 09:00 01/09/22 07:57 Bupropion Xl 300 Mg Tabcr PO 02/07/22 08:59 300 mg QAM MIKE Administration Hydrochlorothiazide 12.5 mg 01/09/22 09:00 01/09/22 07:56 Hydrochlorothiazide 25 Mg Tab PO 02/08/22 08:59 12.5 mg [id number] MIKE Administration Sotalol HCl 80 mg 01/08/22 10:00 01/09/22 07:57 Sotalol Hcl 80 Mg Tab PO 02/07/22 09:59 80 mg BID MIKE Administration Vitamin D 1,000 units 01/08/22 09:00 01/09/22 07:57 Cholecalciferol 1,000 Units 25 Mcg Tab PO 02/07/22 08:59 1,000 units QAM MIKE Administration Past Medical History Medical History Anxiety Atrial fibrillation dx several years ago and has episodes of needing cardioversion Depression GERD (gastroesophageal reflux disease) History of cardioversion about 2 years ago Hyperlipidemia Hypertension Obesity Osteoarthritis Past Family History Family History Brother Family hx of colon cancer Past Surgical History Surgical History H/O: hysterectomy ODALIS History of arthroscopy BILATERAL KNEE History of colonoscopy History of total hip arthroplasty BILATERAL History of total knee replacement BILATERAL Hx of foot surgery right S/P bladder repair BLADDER TACK S/P epidural steroid injection lumbar bulge disc S/P sclerotherapy of varicose veins AT AGE 25 Social History Smoking Status: Never smoker tobacco type: cigarettes Hx Alcohol Use: No alcohol intake frequency: holidays/special occasions only Hx Substance Use: No substance use type: does not use Physical Exam Vital Signs Last Vital Signs Temp 36.8 C 01/09/22 12:13 Pulse 128 H 01/09/22 14:03 Resp 23 01/09/22 14:03 BP 95/67 L 01/09/22 12:13 Pulse Ox 95 01/09/22 12:13 O2 Del Method 01/09/22 12:13 Testing Laboratory Results 01/09/22 04:14 01/09/22 04:14 PT 10.5 Seconds (9.0-12.0) 01/07/22 21:43 INR 1.0 (0.9-1.1) 01/07/22 21:43 APTT 27.9 Seconds (21.0-31.0) 01/07/22 21:43 Hemoglobin A1c 5.6 % (4.5-5.6) 01/09/22 04:14
[2022-01-09] MEDS: ATORVASTATIN 10 MG TAB PO SCH (20:00)
[2022-01-10 05:21] LABS: BUN Creatinine Ratio 26.9 (10-20); Calcium 9.3 mg/dl (8.5-10.1); Creatinine Clr Calc Pharmacy 67.2 ml/min; Est GFR (Non-African American) 54.4 ml/min; Potassium 3.9 mmol/L (3.5-5.1)
--- NOTE | 2022-01-10 07:48 | Cardioversion ---
Date of Service January 10, 2022 Electrical Cardioversion Rpt Electrical Cardioversion Report Patient seen and examined, procedure discussed in detail and informed consent obtained Formal TIMEOUT performed Patient was sedated via anesthesia consult with continuous O2, HR, BP and endtidal CO2 monitoring. Single 150J biphasic synchronized electrical cardioversion performed with successful return to sinus rhythm Patient aroused , tolerated well EKG postconversion: Normal sinus rhythm at 62 bpm, and QT corrected 453 Plan: Continue oral sotalol
--- NOTE | 2022-01-10 07:55 | Anesthesiology Progress Note ---
Date of Service January 10, 2022 Anesthesia Post Procedure Vital Signs Vital Signs: Temp Pulse Pulse Resp BP BP BP 01/10/22 07:08 36.5 C 120 H 18 110/89 01/10/22 04:00 36.5 C 113 H 18 130/84 01/09/22 23:05 119 H 01/09/22 23:03 36.5 C 112 H 18 116/73 01/09/22 19:07 36.8 C 116 H 16 125/71 01/09/22 18:00 123 H 24 01/09/22 17:47 122 H 25 H 01/09/22 17:47 136/88 01/09/22 17:00 109 H 20 01/09/22 16:00 36.9 C 125 H 14 01/09/22 15:00 118 H 21 01/09/22 14:03 128 H 23 01/09/22 12:13 36.8 C 95/67 L 01/09/22 12:13 118 H 20 01/09/22 12:12 115 H 27 H 01/09/22 12:12 95/78 L 01/09/22 12:11 127/101 H 01/09/22 12:11 118 H 31 H 01/09/22 12:00 126 H 15 01/09/22 10:00 103 H 22 01/09/22 08:00 108 H 12 01/09/22 08:00 Pulse Ox O2 Del Method O2 Del Method 01/10/22 07:08 98 Room Air 01/10/22 04:00 96 Room Air 01/09/22 23:05 01/09/22 23:03 95 Room Air 01/09/22 19:07 96 Room Air 01/09/22 18:00 01/09/22 17:47 01/09/22 17:47 01/09/22 17:00 01/09/22 16:00 95 Room Air 01/09/22 15:00 01/09/22 14:03 01/09/22 12:13 95 Room Air 01/09/22 12:13 01/09/22 12:12 01/09/22 12:12 01/09/22 12:11 01/09/22 12:11 01/09/22 12:00 01/09/22 10:00 01/09/22 08:00 01/09/22 08:00 Room Air HR now 63 Transfer of Care Handoff Completed per policy Notes Mental Status: alert / awake / arousable and participated in evaluation Patient Amnestic to Procedure: Yes Nausea / Vomiting: adequately controlled Pain: adequately controlled Airway Patency, RR, SpO2: stable & adequate BP & HR: stable & adequate Hydration State: stable & adequate Anesthetic Complications: no major complications apparent
[2022-01-10] MEDS: buPROPion XL 300 MG TABCR PO SCH (08:39)
[2022-01-10] MEDS: SOTALOL HCL 80 MG TAB PO SCH ×2 (08:39→16:48)
[2022-01-10] MEDS: APIXABAN 5 MG TABLET PO SCH ×2 (08:40→19:07)
[2022-01-10] MEDS: CHOLECALCIFEROL 1,000 UNITS 25 MCG TAB PO SCH (08:40)
--- NOTE | 2022-01-10 09:55 | Cardiology Progress Note ---
Date of Service January 10, 2022 Assessment & Plan (1) Atrial fibrillation with rapid ventricular response: (2) HTN (hypertension): (3) Obesity: Plan Patient is a 71-year-old female with paroxysmal atrial fibrillation who presents with at least 2-week history of intermittent palpitations increasing heart rate with exertion. Patient found to be in atrial fibrillation with a rapid response. Last cardioversion April 2021. Plan: Continue oral anticoagulation with Eliquis. Continue sotalol 80 mg p.o. twice daily tolerating well on EKG Successful synchronized electrical cardioversion this morning. We will plan on giving oral dose of sotalol at 1700. Repeat EKG at 1800 if no QT abnormalities discharge home this evening. Follow-up cardiology 4 weeks time EKG with PCP visit 01/29 Admission and Anticipated Discharge Date Admission Date: January 08, 2022 Subjective Patient seen pre and post cardioversion , examined, chart, medications, telemetry reviewed. Patient underwent successful synchronized electrical cardioversion this morning with conversion to sinus rhythm with single countershock. Patient tolerated well rhythm now sinus 60s and 70s. EKG without QT prolongation, conduction abnormality Review of Systems Review of Systems: All systems reviewed & are unremarkable except as noted in Subjective Physical Exam Constitutional: WD/WN, vitals as above + obese Eyes: PERRL, conjunctivae normal, anicteric sclerae ENMT: external ear and nose normal, oropharynx normal Neck: trachea midline, no thyromegaly Respiratory: normal respiratory effort, lungs clear to auscultation Cardiovascular: Rate/Rhythm: regular rate and regular rhythm Heart Sounds: normal S1 and normal S2; no gallop and no murmur Palpation: normal PMI Vessels: normal carotid upstroke and radial pulses present; no JVD and no carotid bruit Gastrointestinal (Abdomen): normal bowel sounds, soft, nontender, no hepatosplenomegaly Musculoskeletal: no cyanosis or clubbing, extremities motor strength 5/5 Neurologic: PERRL, EOMI, accommodation nl, no face palsy, no dysarthria Psychiatric: A+Ox3, euthymic affect Results & Data ([facility]) Vital Signs (Past 12 Hours) Vital Signs Temp Pulse Pulse Resp BP BP BP 01/10/22 09:07 70 01/10/22 08:34 64 22 121/76 01/10/22 08:23 60 20 88/73 L 01/10/22 08:47 01/10/22 08:18 36.7 C 01/10/22 08:00 61 18 106/70 01/10/22 07:45 65 18 108/67 01/10/22 07:08 36.5 C 120 H 18 110/89 01/10/22 04:00 36.5 C 113 H 18 130/84 01/09/22 23:05 119 H 01/09/22 23:03 36.5 C 112 H 18 116/73 Pulse Ox Pulse Ox O2 Del Method O2 Del Method 01/10/22 09:07 01/10/22 08:34 99 Room Air 01/10/22 08:23 99 Room Air 01/10/22 08:47 99 Room Air 01/10/22 08:18 01/10/22 08:00 95 Room Air 01/10/22 07:45 95 Room Air 01/10/22 07:08 98 Room Air 01/10/22 04:00 96 Room Air 01/09/22 23:05 01/09/22 23:03 95 Room Air
--- NOTE | 2022-01-10 11:21 | Hospitalist Progress Note ---
Date of Service January 10, 2022 Assessment & Plan (1) Atrial fibrillation with rapid ventricular response: Plan Patient is a 71 yr female who presents with rapid atrial fibrillation. Afib RVR H/O paroxysmal atrial fibrillation --CXR:No acute cardiopulmonary findings. --ECHO: Left ventricle is normal in size. Moderate concentric LVH. Left ventricle wall motion is normal. EF 50 to 55%. Left atrium size is normal. No significant valvular disease. -TSH: 2.5 -S/P Successful synchronized electrical cardioversion on 01/10/22 -- Continue sotalol 80 mg twice a day On Eliquis for anticoagulation Appreciate cardiac input Currently in sinus Needs follow up with Cardiology upon discharge Prediabetes: HbA1c: 5.6 GERD On famotidine. Depression: On bupropion and Ativan as needed Hypertension: Continue hydrochlorothiazide, Also on Sotalol DVT Px: On Eliquis. Code Status Full Code Disposition Home Admission and Anticipated Discharge Date Admission Date: January 08, 2022 Subjective Patient is seen and examined at bedside Had successful cardioversion this morning Doing well post cardioversion Offers no complaints Denies any chest pain, palpitation, dizziness, nausea, abdominal pain Eager to get discharged Review of Systems Review of Systems: All systems reviewed & are unremarkable except as noted in Subjective Physical Exam Physical Exam: Physical Exam: Vitals signs as noted above General Appearance:Morbidly Obese, no apparent distress Head: normocephalic, Atraumatic Eyes: normal inspection, EOMI Neck: supple, Trachea midline Respiratory/Chest: Normal breath sounds, CTA, No accessory muscle use Cardiovascular: S1, S2, No murmur Abdomen/GI:Soft, Non tender, Bowel sounds present Extremities/Musculoskeletal:normal inspection, no edema Neurologic/Psych:AAOX3, grossly no focal neurological deficits Skin: normal color, warm Results & Data Results & Data ([facility]) Vital Signs (Past 12 Hours) Vital Signs Temp Pulse Pulse Resp BP BP Pulse Ox 01/10/22 09:07 70 01/10/22 08:34 64 22 121/76 99 01/10/22 08:23 60 20 88/73 L 99 01/10/22 08:47 01/10/22 08:18 36.7 C 01/10/22 08:00 61 18 106/70 95 01/10/22 07:45 65 18 108/67 95 01/10/22 07:08 36.5 C 120 H 18 110/89 98 01/10/22 04:00 36.5 C 113 H 18 130/84 96 Pulse Ox O2 Del Method O2 Del Method 01/10/22 09:07 01/10/22 08:34 Room Air 01/10/22 08:23 Room Air 01/10/22 08:47 99 Room Air 01/10/22 08:18 01/10/22 08:00 Room Air 01/10/22 07:45 Room Air 01/10/22 07:08 Room Air 01/10/22 04:00 Room Air Laboratory Results [facility] 01/10/22 04:21 Sodium 139 Potassium 3.9 Chloride 104 Carbon Dioxide 28 BUN 28 H Creatinine 1.04 Glucose 96 Calcium 9.3
--- NOTE | 2022-01-10 12:06 | Electrocardiogram Report ---
Test Reason : Blood Pressure : / mmHG Vent. Rate : 113 BPM Atrial Rate : 122 BPM P-R Int : 000 ms QRS Dur : 086 ms QT Int : 364 ms P-R-T Axes : 000 -23 -15 degrees QTc Int : 499 ms Atrial fibrillation with rapid ventricular response Nonspecific ST and T wave abnormality Abnormal ECG When compared with ECG of 09-JAN-2022 04:28, No significant change was found Confirmed by Jori Whittington ([id number]) on 01/10/2022 12:05:54 PM Referred By: Dionicio Palomino Confirmed By:Luis Whittington
--- NOTE | 2022-01-10 12:07 | Electrocardiogram Report ---
Test Reason : Blood Pressure : / mmHG Vent. Rate : 062 BPM Atrial Rate : 062 BPM P-R Int : 168 ms QRS Dur : 088 ms QT Int : 446 ms P-R-T Axes : 012 -20 -04 degrees QTc Int : 452 ms Normal sinus rhythm Normal ECG When compared with ECG of 10-JAN-2022 04:12, (unconfirmed) Sinus rhythm has replaced Atrial fibrillation Vent. rate has decreased BY 51 BPM Confirmed by Jori Whittington ([id number]) on 01/10/2022 12:06:48 PM Referred By: Dionicio Palomino Confirmed By:Luis Whittington
--- NOTE | 2022-01-10 15:28 | Discharge Summary ---
Date of Service January 10, 2022 Admission HPI Per Admitting Provider CHIEF COMPLAINT: Rapid AFib. HISTORY OF PRESENT ILLNESS: This is a 71-year-old female with past medical history significant for hyperlipidemia, prediabetes, hypertension, longstanding persistent atrial fibrillation, GERD, generalized osteoarthritis, chronic pain syndrome, depression, generalized anxiety disorder, presents because of history of atrial fibrillation with plan to start a new medication and to monitor in the hospital. The patient says she has had multiple cardioversions and medications, but it is not getting better, so cardiology want to change the medications and monitor in hospital, but in the ER, she was in rapid AFib. She was given a dose of IV Lopressor. Now the heart rate is in the low 100s. Resting comfortably. Denies any chest pain. No shortness of breath, no nausea, no vomiting, no abdominal pain, no headache, no blurred visions, no runny nose, no sore throat. No cough. Normal bowel and bladder movements. Resting comfortably and hemodynamically stable. Admission Exam Per Admitting Provider PHYSICAL EXAMINATION: GENERAL: The patient is of moderate build, not in acute distress. VITAL SIGNS: Temperature 36.2, pulse 100, respiratory rate 16, blood pressure 125/78, oxygen 95% on room air. HEENT: Pupils equal, round and reactive to light. Oral mucosa moist. NECK: No JVD or neck masses. CARDIOVASCULAR: S1 and S2 heard, tachycardia, regular rhythm. No murmurs. RESPIRATORY SYSTEM: Normal AP diameter. No accessory muscle use. No wheezing, no crackles. ABDOMEN: Soft, bowel sounds present, nontender, no distention. CENTRAL NERVOUS SYSTEM: Cranial nerves II-XII grossly intact, nonfocal. EXTREMITIES: No edema, no erythema. Principal Diagnosis Atrial fibrillation with rapid ventricular response Discharge Data Allergies Allergy/AdvReac Type Severity Reaction Status Date / Time adhesive Allergy Unknown SKIN Verified 01/08/22 01:30 IRRITATION-WITH EKG PATCHES morphine Allergy Unknown ITCHING Verified 01/08/22 01:29 hydrocodone Allergy itching Verified 01/08/22 01:30 hydromorphone [From Dilaudid] Allergy itching Verified 01/08/22 01:30 oxycodone Allergy itching Verified 01/08/22 01:30 Consultations 01/08/22 02:17 ED Decision to Admit Stat 01/08/22 08:00 Consult Cardiology Routine 01/10/22 07:30 Consult Anesthesiology Routine Procedures Performed Operation Date: 01/10/22 07:30 Actual Procedures p Cardioversion - Stef Hopson MD Ordered Studies Laboratory Results WBC 5.73 K/ul (4.8-10.8) 01/09/22 04:14 RBC 4.02 M/uL (3.93-5.22) 01/09/22 04:14 Hgb 11.8 g/dl (12.0-16.0) L 01/09/22 04:14 Hct 36.5 % (34.1-44.9) 01/09/22 04:14 MCV 90.8 fL (80.0-100.0) 01/09/22 04:14 MCH 29.4 pg (25.0-34.0) 01/09/22 04:14 MCHC 32.3 g/dL (32.0-36.0) 01/09/22 04:14 RDW Std Deviation 43.8 fL (36.4-46.3) 01/09/22 04:14 RDW Coeff of Melly 13.2 % (11.5-14.5) 01/09/22 04:14 Plt Count 264 K/uL (130-400) 01/09/22 04:14 MPV 10.5 fL (9.4-12.3) 01/09/22 04:14 Immature Gran % (Auto) 0.2 % 01/09/22 04:14 Neut % (Auto) 44.8 % 01/09/22 04:14 Lymph % (Auto) 44.9 % 01/09/22 04:14 Bartholomew % (Auto) 7.5 % 01/09/22 04:14 Eos % (Auto) 2.1 % 01/09/22 04:14 Baso % (Auto) 0.5 % 01/09/22 04:14 Neut # (Auto) 2.57 K/uL (1.4-6.5) 01/09/22 04:14 Lymph # (Auto) 2.57 K/uL (1.2-3.4) 01/09/22 04:14 Bartholomew # (Auto) 0.43 K/uL (0.24-0.82) 01/09/22 04:14 Eos # (Auto) 0.12 K/uL (0-0.50) 01/09/22 04:14 Baso # (Auto) 0.03 K/uL (0-0.2) 01/09/22 04:14 Immature Gran # (Auto) 0.01 K/uL (0.00-0.02) 01/09/22 04:14 PT 10.5 Seconds (9.0-12.0) 01/07/22 21:43 INR 1.0 (0.9-1.1) 01/07/22 21:43 APTT 27.9 Seconds (21.0-31.0) 01/07/22 21:43 PTT Ratio 1.0 01/07/22 21:43 Sodium 139 mmol/L (136-145) 01/10/22 04:21 Potassium 3.9 mmol/L (3.5-5.1) 01/10/22 04:21 Chloride 104 mmol/L (98-107) 01/10/22 04:21 Carbon Dioxide 28 mmol/L (21-32) 01/10/22 04:21 Anion Gap 7 (3-11) 01/10/22 04:21 BUN 28 mg/dl (6-23) H 01/10/22 04:21 Creatinine 1.04 mg/dl (0.6-1.2) 01/10/22 04:21 Est Cr Clr Drug Dosing 67.2 ml/min 01/10/22 04:21 Est GFR ( Amer) 63.0 ml/min 01/10/22 04:21 Est GFR (Non-Af Amer) 54.4 ml/min 01/10/22 04:21 BUN/Creatinine Ratio 26.9 (10-20) H 01/10/22 04:21 Glucose 96 mg/dl (70-99(Fasting)) 01/10/22 04:21 Estimat Average Glucose 114 mg/dl 01/09/22 04:14 Hemoglobin A1c 5.6 % (4.5-5.6) 01/09/22 04:14 Calcium 9.3 mg/dl (8.5-10.1) 01/10/22 04:21 Magnesium 2.0 mg/dl (1.7-2.4) 01/10/22 04:21 Total Bilirubin 0.3 mg/dl (0.2-1.0) 01/07/22 21:43 AST 22 U/L (13-39) 01/07/22 21:43 ALT 21 U/L (7-52) 01/07/22 21:43 Alkaline Phosphatase 78 U/L (34-104) 01/07/22 21:43 Troponin I High Sens 4.3 pg/ml (0-14) 01/08/22 21:28 Total Protein 7.5 gm/dl (6.0-8.3) 01/07/22 21:43 Albumin 4.5 gm/dl (3.4-5.0) 01/07/22 21:43 Globulin 3.0 gm/dl (2.5-4.0) 01/07/22 21:43 Albumin/Globulin Ratio 1.5 (0.9-2) 01/07/22 21:43 TSH 2.563 uIu/ml (0.300-4.500) 01/10/22 04:21 Nasal Screen MRSA (PCR) Negative (Negative) 01/08/22 11:00 SARS-CoV-2, RNA, NAAT NEGATIVE (NEGATIVE) 01/07/22 21:46 Impressions Chest X-Ray 01/07/22 19:58 XR chest 1V portable CLINICAL HISTORY: Atypical chest pain. COMPARISON STUDY: Chest radiograph January 23, 2021. FINDINGS: Lung volumes are normal. Lungs are clear. There is no pneumothorax or pleural effusion. Mild cardiomegaly is unchanged. Mediastinal contours are normal. There is no evidence for pulmonary edema. IMPRESSION: No acute cardiopulmonary findings. ACT 112: Negative or not required by law. Electronically signed by: Desmond Wells M.D. 01/08/2022 7:50 AM Hospital Course (1) Atrial fibrillation with rapid ventricular response: Plan Patient is a 71 yr female who presents with rapid atrial fibrillation. Afib RVR H/O paroxysmal atrial fibrillation --CXR:No acute cardiopulmonary findings. --ECHO: Left ventricle is normal in size. Moderate concentric LVH. Left ventricle wall motion is normal. EF 50 to 55%. Left atrium size is normal. No significant valvular disease. -TSH: 2.5 -S/P Successful synchronized electrical cardioversion on 01/10/22 -- Continue sotalol 80 mg twice a day On Eliquis for anticoagulation Appreciate cardiac input Currently in sinus Needs follow up with Cardiology upon discharge Prediabetes: HbA1c: 5.6 GERD On famotidine. Depression: On bupropion and Ativan as needed Hypertension: Continue hydrochlorothiazide, Also on Sotalol DVT Px: On Eliquis. Code Status Full Code Disposition Home Total Time Total Time Spent Total Time Spent (In Minutes): 53 minutes Discharge Plan Discharge Items Patient Disposition: Home - Self-Care Reason For Visit: A FIB Discharge Diagnosis: Atrial fibrillation with rapid ventricular response Activity: Per Instructions section Exercise/Sports: Gradually increase as tolerated Non-emergency contact: Primary Care Provider and Leaded Glass Installer Call non-emergency contact if: you have any medication questions, your symptoms worsen, your pain is concerning for you and you have a fever Follow-up/Referrals: Dionicio Palomino DO [Primary Care Provider] - (Date & Time 01/14/2022 3:40 PM Provider Dionicio Palomino DO Department Family Practice [address], [place] ) Diet: Heart Healthy Addtl Attending Provider Instructions: --Follow-up with your primary care physician on 01/14/2022 3:40 PM as scheduled --Follow-up with your grant administrator Dr. Hopson in 4 weeks as advised Seek immediate medical attention if your symptoms reoccur or worsen Please take all medications as instructed on discharge list below. Please call if you have any questions or problems. You can reach a [facility] hospitalist on duty at [facility] 24 hours a day by calling [phone] Pending Studies at Discharge: No Stand-Alone Forms: My [facility], Smoking Cessation Medications and DC Order Prescriptions: New sotalol 80 mg Tablet 80 mg PO BID 90 Days Qty: 180 0RF Continued atorvastatin 10 mg Tablet 10 mg PO HS lorazepam 0.5 mg Tablet 0.5 mg PO HS PRN (Reason: Anxiety) cholecalciferol (vitamin D3) 1,000 unit Tablet 1,000 unit PO QAM Eliquis 5 mg Tablet 5 mg PO BID famotidine 20 mg Tablet 20 mg PO BID PRN (Reason: Heartburn) bupropion HCl 300 mg Tablet Extended Release 24 Hr 300 mg PO QAM hydrochlorothiazide 25 mg Tablet 12.5 mg PO . 2-3 DAYS PER WEEK Discontinued metoprolol succinate 50 mg Capsule,Sprinkle,Er 24hr 50 mg PO BID Discharge Orders: Discharge Order (Routine); Ordered 01/10/22 Ordered By: Derrick Salter Admission Data Admit Date/Time: 01/08/22 05:22 Attending Provider: Derrick Salter Admit Provider: Niraj Marino Primary Care Provider: Dionicio Palomino Other Providers: Niraj Marino ; Venu Galicia ; Sean Perez ; Stef Hopson ; Pavel Oreilly ; Andrew Rehman ; Yoel Washington ; Ana Yancey ; Radha Awad ; Leslie Guidry ; Ncik Arredondo ; Martha Mccloud ; Kate Ballard ; Pamela Macias ; Colleen Sandra ; Celeste Ramsey ; Clifton Yeung ; Curtis Charlton ; Andrew Bradshaw ; José Miguel Rain ; Abbie Rain ; Jovani Santizo ; Brenda Bonilla ; Denis Suh ; Eleuterio Downing ; Arias Lal ; Omar Galeano ; Rebecca Saldana ; Yoel Abdullahi ; Ani Novak ; Dianna Abdullahi ; Juan Luis Rapp ; Leslie Zhao ; Kevin Mehta ; Ana Fenton ; Em Campos ; Chitra Zhao ; Venu Mae ; Shanta Garcia ; Shira Reynaga ; Mechelle Mcneill ; Harini Christensen A ; J Carlos Christensen V ; José Miguel Parsons ; Kate Bird ; Ronny Jessica ; Wendy Gary ; J Carlos Ortiz ; Jadon Saldana ; Jagjit Wesley ; Domenica Morrow ; Wendy Taylor ; J Carlos Marquez ; Sean Bentley ; Pj Galeano ; Wendie Hastings ; Wolfgang Murrell ; Edmar Perez ; Estiven Myaa ; Wolfgang Hilton ; Clifton Gaines Jr ; Rita Serrano ; Amita Cobos ; Asuncion Judge ; Venu Victoria ; Colleen Chandra ; José Miguel Magallanes ; Rosalio Ulrich I. ; Mandi Mcneil ; Amita Raymond
[2022-01-10] MEDS: ATORVASTATIN 10 MG TAB PO SCH (19:07)
[2022-01-11] MEDS ORDERED: SOTALOL HCL 80 MG TAB PO SCH
--- NOTE | 2022-01-11 10:40 | Electrocardiogram Report ---
Test Reason : Blood Pressure : / mmHG Vent. Rate : 066 BPM Atrial Rate : 066 BPM P-R Int : 166 ms QRS Dur : 088 ms QT Int : 448 ms P-R-T Axes : 012 -29 -14 degrees QTc Int : 469 ms Normal sinus rhythm Minimal voltage criteria for LVH, may be normal variant Cannot rule out Anterior infarct , age undetermined Abnormal ECG When compared with ECG of 10-JAN-2022 07:54, No significant change was found Confirmed by Jori Whittington ([id number]) on 01/11/2022 10:40:21 AM Referred By: Dionicio Palomino Confirmed By:Luis Whittington
== END 2022-01-10 19:30 | disposition home or self-care (01) | DRG 310 ==
LOC: ED 19:41 → EDINP 01-08 05:22 → SUATTDRO 01-08 05:22 → 1E 01-08 09:40